=== PATIENT | male | born 1940 | race Caucasian/White ===

== ENCOUNTER 2017-12-05 11:39 | Emergency (ER) | payer MEDICARE, BC ==
[~2017-12-05] VITALS: Ht 170.2 cm; Wt 81.6 kg
[~2017-12-05 11:39] MED LIST: ALPR1TAB2 PO; ASPI-39 PO; CA C1TAB38 PO; CARV3.122 PO; CEPH500T PO; CLOP75TA57 PO; FAMO20TA5 PO; IBUP600T16 PO; LORA10TA68 PO; LOSA25TA PO; MUPI15CR TP; NITR0.4T SL; SIMV10TA PO; WARF6TAB47 PO; WARF7.5T45 PO
[2017-12-05] MEDS ORDERED: ASPIRIN 81 MG TAB.CHEW PO ONE (12:00)
--- NOTE | 2017-12-05 12:05 | PHYS DOC ---
Past History Past Medical History: A-Fib, Anxiety, CAD, Hypertension, Kidney Stones Past Surgical History: Other Smoking: Non-smoker Alcohol Use: None Drug Use: None Adult General Chief Complaint Chief Complaint: Palpitations [facility] HPI 77-year-old male presents with palpitations. Patient has known atrial fibrillation for which he takes carvedilol. He goes in and out A. fib and is aware of it when it happens. Over the last 2 weeks, the patient has felt himself having more frequent episodes of A. fib at rest. He used to go to couple months without having an episode, so this is concerning him. He denies chest pain or shortness of breath or diaphoresis. He has had night sweats the last 2 nights but thinks this may be related to eating roasted peanuts which she 's had difficulty with in the past. On arrival to the ED he is not having palpitations. He denies chest pain or shortness of breath. He just wants to make sure things are okay. He has no other feelings of illness. He denies fever or chills. Cardiac follow-up scheduled already in the next week. Review of Systems Review of Systems Constitutional: Denies fever or chills [] Eyes: Denies change in visual acuity, redness, or eye pain [] HENT: Denies nasal congestion or sore throat [] Respiratory: Denies cough or shortness of breath [] Cardiovascular: No additional information not addressed in HPI [] GI: Denies abdominal pain, nausea, vomiting, bloody stools or diarrhea [] : Denies dysuria or hematuria [] Musculoskeletal: Denies back pain or joint pain [] Integument: Denies rash or skin lesions [] Neurologic: Denies headache, focal weakness or sensory changes [] Endocrine: Denies polyuria or polydipsia [] All other systems were reviewed and found to be within normal limits, except as documented in this note. Current Medications Current Medications Current Medications Medications (Trade) Dose Ordered Sig/Eliu Start Time Stop Time Status Last Admin Dose Admin Aspirin (Children'S Aspirin) 324 mg 1X ONCE 12/05/17 12:00 12/05/17 12:01 Allergies Allergies Allergies Coded Allergies Type Severity Reaction Last Updated Verified Penicillins Allergy Unknown 06/27/14 Yes Sulfa (Sulfonamide Antibiotics) Allergy Unknown 06/27/14 Yes codeine Allergy Unknown 06/27/14 Yes Physical Exam Physical Exam Constitutional: Well developed, well nourished, no acute distress, non-toxic appearance. [] HENT: Normocephalic, atraumatic, bilateral external ears normal, oropharynx moist, no oral exudates, nose normal. [] Eyes: PERRLA, EOMI, conjunctiva normal, no discharge. [] Neck: Normal range of motion, no tenderness, supple, no stridor. [] Cardiovascular:Heart rate regular rhythm, no murmur [] Lungs & Thorax: Bilateral breath sounds clear to auscultation [] Abdomen: Bowel sounds normal, soft, no tenderness, no masses, no pulsatile masses. [] Skin: Warm, dry, no erythema, no rash. [] Back: No tenderness, no CVA tenderness. [] Extremities: No tenderness, no cyanosis, no clubbing, ROM intact, no edema. [] Neurologic: Alert and oriented X 3, normal motor function, normal sensory function, no focal deficits noted. [] Psychologic: Affect normal, judgement normal, mood normal. [] EKG EKG Sinus bradycardia, rate 49, borderline left axis, no ST elevations or depressions, Q waves in 2, 3, and aVF.[] Radiology/Procedures Radiology/Procedures Exam: AP portable chest History: Palpitations. Comparison: August 12, 2016. Findings: The heart and mediastinal structures are within normal limits for size. Lungs are without infiltrate. No pleural effusion or pneumothorax is identified. Impression: 1. No acute cardiopulmonary process. Electronically signed by: Wisam Love MD (12/05/2017 12:27 PM) [place] [id number] DICTATED AND SIGNED BY: WIASM LOVE MD DATE: 12/05/17 1226 CC: ÁNGELA YANEZ DO; KAYLEIGH TORRES PA ~ [] Course & Med Decision Making Course & Med Decision Making Pertinent Labs and Imaging studies reviewed. (See chart for details) The patient's EKG is unremarkable, his labs are unremarkable, his troponin is negative, his chest x-ray is unremarkable. I believe the patient just having more frequent bouts of A. fib for he is just noticing it more lately. Advised that he inform his hired help of his visit today and his symptoms. He already has an appointment December 13. [] Dragon Disclaimer Dragon Disclaimer This electronic medical record was generated, in whole or in part, using a voice recognition dictation system. Departure Departure: Referrals: KAYLEIGH TORRES (PCP) ÁNGELA YANEZ DO December 05, 2017 12:05
[2017-12-05 12:23] LABS: BASO % 0 % (0-3); EOS # 0.1 x10^3/uL (0.0-0.7); EOS % 2 % (0-3); HEMATOCRIT 48.1 % (39.0-53.0); HEMOGLOBIN 16.6 g/dL (13.0-17.5); LYMPH % 18 % (24-48); MEAN CORPUSCULAR HEMOGLOBIN 33 pg (25-35); MEAN CORPUSCULAR HGB CONC 34 g/dL (31-37); MEAN CORPUSCULAR VOLUME 96 fL (79-100); MONO # 0.4 x10^3/uL (0.0-1.1); MONO % 7 % (0-9); NEUT % 73 % (31-73); PLATELET COUNT 145 x10^3/uL (140-400); RED BLOOD COUNT 5.01 x10^6/uL (4.30-5.70); RED CELL DISTRIBUTION WIDTH 14.4 % (11.5-14.5); WHITE BLOOD COUNT 5.4 x10^3/uL (4.0-11.0)
--- NOTE | 2017-12-05 12:30 | RAD ---
Exam: AP portable chest History: Palpitations. Comparison: August 12, 2016. Findings: The heart and mediastinal structures are within normal limits for size. Lungs are without infiltrate. No pleural effusion or pneumothorax is identified. Impression: 1. No acute cardiopulmonary process. Electronically signed by: Wsiam Love MD (12/05/2017 12:27 PM) [place] [id number]
[2017-12-05 12:42] LABS: ALBUMIN 3.4 g/dL (3.4-5.0); ALBUMIN/GLOBULIN RATIO 1.3 (1.0-1.7); CALCIUM 8.5 mg/dL (8.5-10.1); CREATININE 0.9 mg/dL (0.7-1.3); GFR 81.6; POTASSIUM 3.7 mmol/L (3.5-5.1); TOTAL BILIRUBIN 1.3 mg/dL (0.2-1.0); TOTAL PROTEIN 6.1 g/dL (6.4-8.2)
[2017-12-05 13:11] VITALS: BP 160/63
--- NOTE | 2017-12-05 14:48 | EKG ---
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
== END 2017-12-05 13:12 | disposition home or self-care (01) ==
LOC: ER 11:39
DX: I48.91 Unspecified atrial fibrillation (principal); F41.9 Anxiety disorder, unspecified; I10 Essential (primary) hypertension; I25.10 Atherosclerotic heart disease of native coronary artery without angina pectoris; Z87.442 Personal history of urinary calculi; Z88.0 Allergy status to penicillin; Z88.2 Allergy status to sulfonamides; Z88.5 Allergy status to narcotic agent
CPT/HCPCS: 36415; 71045; 80053; 83880; 84484; 85025; 93005; 99285-25

== ENCOUNTER → 2017-12-12 | Outpatient (CLI) | payer MEDICARE, BC ==
[2017-12-05 13:11] VITALS: BP 160/63
--- NOTE | 2017-12-12 11:22 | CARD ---
MR#: [id number] Date of Study: 12/12/2017 Ordering Physician: WAI CASTILLO, Referring Physician: Marisol MICHAUD: MARY Gonzalez APPROVED REPORT EXAM: Two-dimensional and M-mode echocardiogram with Doppler and color Doppler. Other Information Quality : GoodHR: 74bpm INDICATION Cardiac Disease: CAD 2D DIMENSIONS Left Atrium(2D)4.3 (1.6-4.0cm)IVSd1.3 (0.7-1.1cm) Aortic Root(2D)2.6 (2.0-3.7cm)LVDd4.8 (3.9-5.9cm) LVOT Diameter2.0 (1.8-2.4cm)PWd1.3 (0.7-1.1cm) LVDs3.4 (2.5-4.0cm)FS (%) 28.4 % SV57.5 mlLVEF(%)54.7 (>50%) Aortic Valve AoV Peak [place].167.5cm/sAoV VTI43.2cm AO Peak GR.11.2mmHgLVOT Peak [place].109.0cm/s LVOT VTI 26.73cmAO Mean GR.6mmHg AVIVA (VMAX)1.90rt2BHA (VTI)1.88cm2 AI P 1/2 Tazk090xb Mitral Valve MV E Vozyeldg92.2cm/sMV E Peak Gr.84mmHg MV DECEL [id number] A Quvkszee84.0cm/s E/A Ratio1.3 Pulmonary Valve PV Peak Bhntlyso127.7cm/sPV Peak Grad.6mmHg Tricuspid Valve TR P. Ywetuypj701vs/sTR Peak Gr.28mmHg Pulmonary Vein S1 Kfdxbvjt64.3cm/sD2 Cuimhyif28.3cm/s LEFT VENTRICLE The left ventricle is normal size. There is mild concentric left ventricular hypertrophy. The left ve ntricular systolic function is normal and the ejection fraction is within normal range. EF 55% There is normal LV segmental wall motion. Transmitral Doppler flow pattern is Grade II-pseudonormal filling dynamics. RIGHT VENTRICLE The right ventricle is normal size. There is normal right ventricular wall thickness. The right ventr icular systolic function is normal. ATRIA The left atrium is mildly dilated. The right atrium is mildly dilated. The interatrial septum is inta ct with no evidence for an atrial septal defect or patent foramen ovale as noted on 2-D or Doppler im aging. AORTIC VALVE The aortic valve is mildly calcified. Doppler and Color Flow revealed moderate aortic regurgitation. There is no significant aortic valvular stenosis. There is no aortic valvular vegetation. MITRAL VALVE The mitral valve is mildly thickened. There is no evidence of mitral valve prolapse. There is no mitr al valve stenosis. Doppler and Color-flow revealed moderate mitral regurgitation. TRICUSPID VALVE The tricuspid valve leaflets are thickened , but open well. Doppler and Color Flow revealed mild tric uspid regurgitation. There is no tricuspid valve prolapse or vegetation. There is no tricuspid valve stenosis. PULMONIC VALVE Doppler and Color Flow revealed no pulmonic valvular regurgitation. There is no pulmonic valvular sawyer nosis. GREAT VESSELS The aortic root is normal size. The aortic root displays mild sclerocalcific changes of the aortic an nulus. The IVC was not visualized. PERICARDIAL EFFUSION There is no pleural effusion. There is no evidence of significant pericardial effusion. Critical Notification Critical Value: No <Conclusion> The left ventricular systolic function is normal and the ejection fraction is within normal range. EF 55% There is normal LV segmental wall motion. Doppler and Color Flow revealed moderate aortic regurgitation. Doppler and Color-flow revealed moderate mitral regurgitation. Signed by : Monty Fernandez, Electronically Approved : 12/12/2017 11:21:02
== END | disposition home or self-care (01) ==
LOC: ECHO 07:39
PROVIDERS: ATTEND Internal Medicine Cardiovascular Disease
DX: I25.10 Atherosclerotic heart disease of native coronary artery without angina pectoris (principal); I08.3 Combined rheumatic disorders of mitral, aortic and tricuspid valves
CPT/HCPCS: 93306

== ENCOUNTER 2018-05-24 08:51 | Emergency (ER) | payer MEDICARE, BC ==
[~2018-05-24] VITALS: Ht 170.2 cm; Wt 87.5 kg
--- NOTE | 2018-05-24 09:19 | EKG ---
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
[2018-05-24 09:55] LABS: BASO % 0 % (0-3); EOS # 0.1 x10^3/uL (0.0-0.7); EOS % 2 % (0-3); HEMATOCRIT 49.2 % (39.0-53.0); HEMOGLOBIN 16.5 g/dL (13.0-17.5); LYMPH # 0.8 x10^3/uL (1.0-4.8); LYMPH % 14 % (24-48); MEAN CORPUSCULAR HEMOGLOBIN 32 pg (25-35); MEAN CORPUSCULAR HGB CONC 34 g/dL (31-37); MEAN CORPUSCULAR VOLUME 96 fL (79-100); MONO # 0.4 x10^3/uL (0.0-1.1); MONO % 6 % (0-9); NEUT # 4.7 x10^3uL (1.8-7.7); NEUT % 79 % (31-73); PLATELET COUNT 175 x10^3/uL (140-400); RED BLOOD COUNT 5.13 x10^6/uL (4.30-5.70); RED CELL DISTRIBUTION WIDTH 13.7 % (11.5-14.5); WHITE BLOOD COUNT 5.9 x10^3/uL (4.0-11.0)
--- NOTE | 2018-05-24 10:06 | RAD ---
PROCEDURE: CHEST PA LATERAL CLINICAL INDICATION: WEAKNESS, SHORT OF BREATH COMPARISON: 12/05/2017 FINDINGS: No pneumothorax identified. Cardiac and mediastinal contours unremarkable. No pulmonary consolidation or acute airspace disease. No acute osseous abnormalities identified. IMPRESSION: No pulmonary consolidation or acute airspace disease. Electronically signed by: Nikunj Farley DO (05/24/2018 10:02 AM) [id number]
[2018-05-24 10:18] LABS: ALBUMIN 3.4 g/dL (3.4-5.0); ALBUMIN/GLOBULIN RATIO 1.2 (1.0-1.7); CALCIUM 8.7 mg/dL (8.5-10.1); GFR 72.1; MAGNESIUM 2.1 mg/dL (1.8-2.4); TOTAL BILIRUBIN 1.1 mg/dL (0.2-1.0); TOTAL PROTEIN 6.3 g/dL (6.4-8.2)
[2018-05-24 10:49] LABS: BACTERIA,URINE 0 /HPF (0-FEW); BILIRUBIN,URINE NEG (NEG); CLARITY,URINE HAZY; COLOR,URINE AMBER; GLUCOSE,URINE NEG (NEG); NITRITE,URINE NEG (NEG); RBC,URINE 0 /HPF (0-2); SQUAMOUS EPITHELIAL CELL,UR OCC /LPF; UROBILINOGEN,URINE 0.2 mg/dL (0.2 mg/dL); WBC,URINE 0 /HPF (0-4)
[2018-05-24] MEDS ORDERED: ALPR0.25 PO (11:16)
--- NOTE | 2018-05-24 11:16 | PHYS DOC ---
Past History Past Medical History: A-Fib, Anxiety, Heart Disease, Pneumonia Past Surgical History: Cancer Surgery, Cholecystectomy, Other Smoking: Non-smoker Alcohol Use: None Drug Use: None Adult General Chief Complaint Chief Complaint: SHORTNESS OF BREATH HPI HPI Patient is a 78 year old male who presents with complaining of generalized weakness for several weeks and right forearm pain today. Patient states he had decrease of energy and activity for the last several weeks without vomiting, diarrhea, urinary symptoms, fever and chills, chest pain, neuro deficit. Patient complaining of mild episodes of shortness of breath with exertion and supine position. Patient complaining of mild right distal arm pain and was concern for possible heart attack because with his previous heart attack 7 years ago he did not have chest pain. Patient denies losing weight, anorexia, insomnia. Patient had cardiology visit and unremarkable colonoscopy a few months ago. Review of Systems Review of Systems Constitutional: Denies fever or chills [] Eyes: Denies change in visual acuity, redness, or eye pain [] HENT: Denies nasal congestion or sore throat [] Respiratory: Denies cough or shortness of breath [] Cardiovascular: No additional information not addressed in HPI [] GI: Denies abdominal pain, nausea, vomiting, bloody stools or diarrhea [] : Denies dysuria or hematuria [] Musculoskeletal: Denies back pain or joint pain [] Integument: Denies rash or skin lesions [] Neurologic: Denies headache, focal weakness or sensory changes [] Endocrine: Denies polyuria or polydipsia [] All other systems were reviewed and found to be within normal limits, except as documented in this note. Allergies Allergies Allergies Coded Allergies Type Severity Reaction Last Updated Verified Penicillins Allergy Unknown 06/27/14 Yes Sulfa (Sulfonamide Antibiotics) Allergy Unknown 06/27/14 Yes codeine Allergy Unknown 06/27/14 Yes Physical Exam Physical Exam Constitutional: Well developed, well nourished, no acute distress, non-toxic appearance. [] HENT: Normocephalic, atraumatic, oropharynx moist, no oral exudates, nose normal. [] Eyes: PERRLA, EOMI, conjunctiva normal, no discharge. [] Neck: Normal range of motion, no tenderness, supple, no stridor. [] Cardiovascular:Heart rate regular rhythm, no murmur [] Lungs & Thorax: Bilateral breath sounds clear to auscultation [] Abdomen: Bowel sounds normal, soft, no tenderness, no masses, no pulsatile masses. [] Skin: Warm, dry, no erythema, no rash. [] Back: No tenderness, no CVA tenderness. [] Extremities: No tenderness, no cyanosis, no clubbing, ROM intact, no edema. [] Neurologic: Alert and oriented X 3, normal motor function, normal sensory function, no focal deficits noted. [] Psychologic: Affect normal, judgement normal, mood normal. [] Current Patient Data Vital Signs Vital Signs Date Time Temp Pulse Resp B/P (MAP) Pulse Ox O2 Delivery O2 Flow Rate FiO2 05/24/18 10:25 97.4 56 24 164/71 (102) 97 Room Air Lab Results Laboratory Tests Test 05/24/18 09:33 05/24/18 10:23 White Blood Count 5.9 x10^3/uL (4.0-11.0) Red Blood Count 5.13 x10^6/uL (4.30-5.70) Hemoglobin 16.5 g/dL (13.0-17.5) Hematocrit 49.2 % (39.0-53.0) Mean Corpuscular Volume 96 fL (79-100) Mean Corpuscular Hemoglobin 32 pg (25-35) Mean Corpuscular Hemoglobin Concent 34 g/dL (31-37) Red Cell Distribution Width 13.7 % (11.5-14.5) Platelet Count 175 x10^3/uL (140-400) Neutrophils (%) (Auto) 79 % (31-73) H Lymphocytes (%) (Auto) 14 % (24-48) L Monocytes (%) (Auto) 6 % (0-9) Eosinophils (%) (Auto) 2 % (0-3) Basophils (%) (Auto) 0 % (0-3) Neutrophils # (Auto) 4.7 x10^3uL (1.8-7.7) Lymphocytes # (Auto) 0.8 x10^3/uL (1.0-4.8) L Monocytes # (Auto) 0.4 x10^3/uL (0.0-1.1) Eosinophils # (Auto) 0.1 x10^3/uL (0.0-0.7) Basophils # (Auto) 0.0 x10^3/uL (0.0-0.2) Prothrombin Time 18.3 SEC (9.4-11.4) H Prothrombin Time INR 1.9 (0.9-1.1) H PTT 30 SEC (23-33) D-Dimer (Maye) < 0.19 mg/L (0.00-0.50) Sodium Level 139 mmol/L (136-145) Potassium Level 4.0 mmol/L (3.5-5.1) Chloride Level 104 mmol/L (98-107) Carbon Dioxide Level 26 mmol/L (21-32) Anion Gap 9 (6-14) Blood Urea Nitrogen 14 mg/dL (8-26) Creatinine 1.0 mg/dL (0.7-1.3) Estimated GFR (Cockcroft-Gault) 72.1 BUN/Creatinine Ratio 14 (6-20) Glucose Level 132 mg/dL (70-99) H Lactic Acid Level 1.0 mmol/L (0.4-2.0) Calcium Level 8.7 mg/dL (8.5-10.1) Magnesium Level 2.1 mg/dL (1.8-2.4) Total Bilirubin 1.1 mg/dL (0.2-1.0) H Aspartate Amino Transferase (AST) 17 U/L (15-37) Alanine Aminotransferase (ALT) 28 U/L (16-63) Alkaline Phosphatase 61 U/L (46-116) Creatine Kinase 71 U/L (39-308) Troponin I Quantitative < 0.017 ng/mL (0-0.055) ZP-Lqf-P-Type Natriuretic Peptide 230 pg/mL (0-449) Total Protein 6.3 g/dL (6.4-8.2) L Albumin 3.4 g/dL (3.4-5.0) Albumin/Globulin Ratio 1.2 (1.0-1.7) Lipase 143 U/L (73-393) Urine Collection Type Unknown Urine Color Karen Urine Clarity Hazy Urine pH 5.5 Urine Specific [place] 1.025 Urine Protein Neg (NEG-TRACE) Urine Glucose (UA) Neg mg/dL (NEG) Urine Ketones (Stick) Neg mg/dL (NEG) Urine Blood Neg (NEG) Urine Nitrite Neg (NEG) Urine Bilirubin Neg (NEG) Urine Urobilinogen Dipstick 0.2 mg/dL (0.2 mg/dL) Urine Leukocyte Esterase Neg (NEG) Urine RBC 0 /HPF (0-2) Urine WBC 0 /HPF (0-4) Urine Squamous Epithelial Cells Occ /LPF Urine Bacteria 0 /HPF (0-FEW) Urine Mucus Mod /LPF EKG EKG EKG interpreted me. EKG at 0 911 showed sinus bradycardia at rate of 55, left axis deviation, Q waves in inferior leads, no acute ST and T-wave abnormalities. Radiology/Procedures Radiology/Procedures [address] [address] IMAGING REPORT Signed PATIENT: MAGGY CABALLERO ACCOUNT: [id number] : 1940 LOCATION: ER AGE: 78 SEX: M EXAM STATUS: REG ER ORD. PHYSICIAN: MANDEEP PEÑALOZA MD REASON: generalized weakness PROCEDURE: CHEST PA & LATERAL PROCEDURE: CHEST PA LATERAL CLINICAL INDICATION: WEAKNESS, SHORT OF BREATH COMPARISON: 12/05/2017 FINDINGS: No pneumothorax identified. Cardiac and mediastinal contours unremarkable. No pulmonary consolidation or acute airspace disease. No acute osseous abnormalities identified. IMPRESSION: No pulmonary consolidation or acute airspace disease. Electronically signed by: Nikunj Farley DO (05/24/2018 10:02 AM) [id number] DICTATED AND SIGNED BY: NIKUNJ FARLEY DO DATE: 05/24/18 1001 CC: MANDEEP PEÑALOZA MD; KAYLEIGH TORRES ~ Course & Med Decision Making Course & Med Decision Making Pertinent Labs and Imaging studies reviewed. (See chart for details) Evaluation of patient in ER showed 78-year-old male patient with history of anxiety with complaining of generalized weakness for several weeks. Patient had unremarkable physical exam and cardiac enzyme, d-dimer, electrolytes and labs. Prescription for Xanax 0.25 for using PRN was given and patient instructed to follow up with his primary care physician. Dragon Disclaimer Dragon Disclaimer This electronic medical record was generated, in whole or in part, using a voice recognition dictation system. Departure Departure: Condition: STABLE Referrals: KAYLEIGH TORRES (PCP) Patient Instructions: Anxiety and Panic Attacks, Weakness Additional Instructions: Continue your current medication Follow-up with your primary care physician in 3-5 days Return to ER if not getting better Scripts Alprazolam (XANAX) 0.25 Mg Tablet 0.25 MG PO PRN Q6HRS PRN for ANXIETY / AGITATION, #14 TAB 0 Refills Prov: MANDEEP PEÑALOZA MD 05/24/18 MANDEEP PEÑALOZA MD May 24, 2018 11:16
[2018-05-24 11:25] VITALS: BP 164/83
== END 2018-05-24 11:33 | disposition home or self-care (01) ==
LOC: ER 08:51
DX: R53.1 Weakness (principal); R06.02 Shortness of breath; M79.601 Pain in right arm; I48.91 Unspecified atrial fibrillation; F41.9 Anxiety disorder, unspecified; Z88.0 Allergy status to penicillin; Z88.2 Allergy status to sulfonamides; Z88.5 Allergy status to narcotic agent
CPT/HCPCS: 36415; 71046; 80053; 81001; 82550; 83605; 83690; 83735; 83880; 84484; 85025; 85379; 85610; 85730; 87040; 93005; 99285-25

== ENCOUNTER 2018-10-22 19:40 | Inpatient (IN) | payer MEDICARE, BC ==
[~2018-10-22] VITALS: Ht 170.2 cm; Wt 90.4 kg
[~2018-10-22 19:40] MED LIST changes: +ALPR0.25 PO; -CARV3.122 PO; +CARV3.1230 PO
[2018-10-22] MEDS ORDERED: ASPIRIN 81 MG TAB.CHEW PO ONE (19:45)
[2018-10-22] MEDS ORDERED: IV NORMAL SALINE 1,000ML 1,000 ML IV SCH (19:45)
--- NOTE | 2018-10-22 19:45 | ED.ADGEN ---
Past History Past Medical History: A-Fib, Anxiety, CAD, Heart Disease, OK, Pneumonia Past Surgical History: Cancer Surgery, Cholecystectomy, Other Smoking: Non-smoker Alcohol Use: None Drug Use: None Adult General Chief Complaint Chief Complaint ".. I ve been having off and on tightness or chest discomfort all day...but it more constant so I came in.. it vivienne like when I had OK ...Thanks2010.. I usually see the cardiology doctors at [place].. My primary is Ernestina [facility] HPI Patient is a 78 year old male who presents with above hx and complaints of chest pain throughout the day. Patient states pain and tightness is in center chest and radiates into left arm. Patient has had previous OK and stents. Last OK was in 2010 in May. Patient does have a history of hypertension diabetes elevated cholesterol. Patient normally follows with [place] cardiology. Patient is on Coumadin. Review of Systems Review of Systems Constitutional: Denies fever or chills [] Eyes: Denies change in visual acuity, redness, or eye pain [] HENT: Denies nasal congestion or sore throat [] Respiratory: Denies cough or shortness of breath [] Cardiovascular: No additional information not addressed in [facility] [] GI: Denies abdominal pain, nausea, vomiting, bloody stools or diarrhea [] : Denies dysuria or hematuria [] Musculoskeletal: Denies back pain or joint pain [] Integument: Denies rash or skin lesions [] Neurologic: Denies headache, focal weakness or sensory changes [] Endocrine: Denies polyuria or polydipsia [] All other systems were reviewed and found to be within normal limits, except as documented in this note. Family History Family History Noncontributory Current Medications Current Medications Current Medications Medications (Trade) Dose Ordered Sig/Eliu Start Time Stop Time Status Last Admin Dose Admin Aspirin (Children'S Aspirin) 324 mg 1X ONCE 10/22/18 19:45 10/22/18 19:46 DC Nitroglycerin (Nitro-Bid Oint) 1 inch 1X ONCE 10/22/18 20:00 10/22/18 20:01 Sodium Chloride 1,000 ml @ 100 mls/hr Q10H 10/22/18 19:45 10/23/18 05:44 Allergies Allergies Allergies Coded Allergies Type Severity Reaction Last Updated Verified Penicillins Allergy Unknown 06/27/14 Yes Sulfa (Sulfonamide Antibiotics) Allergy Unknown 06/27/14 Yes codeine Allergy Unknown 06/27/14 Yes Physical Exam Physical Exam Constitutional: Mild distress, non-toxic appearance. [] HENT: Normocephalic, atraumatic, bilateral external ears normal, oropharynx moist, no oral exudates, nose normal. [] Eyes: PERRLA, EOMI, conjunctiva normal, no discharge. [] Neck: Normal range of motion, no tenderness, supple, no stridor. [] Cardiovascular:Heart rate regular rhythm, no murmur []PMI to the left. Occasional PVCs per monitor Lungs & Thorax: Bilateral breath sounds clear to auscultation [] Abdomen: Bowel sounds normal, soft, no tenderness, no masses, no pulsatile masses. [] Obese. Declines rectal at this time. Skin: Warm, dry, no erythema, no rash. [] Back: No tenderness, no CVA tenderness. [] Extremities: No tenderness, no cyanosis, no clubbing, ROM intact, no edema. [] Neurologic: Alert and oriented X 3, normal motor function, normal sensory function, no focal deficits noted. [] Psychologic: Affect anxious, judgement normal, mood normal. [] EKG EKG My interpretation EKG shows a sinus rhythm at 63 bpm. Left axis deviation. Some nonspecific contour changes. No findings acute STEMI of contralateral changes.[] Radiology/Procedures Radiology/Procedures My interpretation chest x-ray shows no acute interval changes. Borderline cardiomegaly.[] Course & Med Decision Making Course & Med Decision Making Pertinent Labs and Imaging studies reviewed. (See chart for details) Patient admitted to Dr. Pérez with cardiology consult [] Final Impression Final Impression 1. Chest Pain[] 2. Hx. CADz 3. HTN 4. DM - 123 See down time forms for further detail. Dragon Disclaimer Dragon Disclaimer This electronic medical record was generated, in whole or in part, using a voice recognition dictation system. Discharge Summary Visit Information Final Diagnosis Problems Medical Problems: (1) Chest pain Status: Acute Brief Hospital Course Allergies Allergies Coded Allergies Type Severity Reaction Last Updated Verified Penicillins Allergy Unknown 06/27/14 Yes Sulfa (Sulfonamide Antibiotics) Allergy Unknown 06/27/14 Yes codeine Allergy Unknown 06/27/14 Yes Vital Signs Vital Signs Date Time Temp Pulse Resp B/P (MAP) Pulse Ox O2 Delivery O2 Flow Rate FiO2 10/22/18 20:43 61 16 164/71 (102) 94 Room Air 10/22/18 19:40 97.8 Lab Results Laboratory Tests Test 10/22/18 19:44 10/22/18 20:05 White Blood Count 5.2 x10^3/uL (4.0-11.0) Red Blood Count 5.37 x10^6/uL (4.30-5.70) Hemoglobin 17.6 g/dL (13.0-17.5) Hematocrit 51.0 % (39.0-53.0) Mean Corpuscular Volume 95 fL (79-100) Mean Corpuscular Hemoglobin 33 pg (25-35) Mean Corpuscular Hemoglobin Concent 35 g/dL (31-37) Red Cell Distribution Width 14.2 % (11.5-14.5) Platelet Count 162 x10^3/uL (140-400) Neutrophils (%) (Auto) 62 % (31-73) Lymphocytes (%) (Auto) 27 % (24-48) Monocytes (%) (Auto) 9 % (0-9) Eosinophils (%) (Auto) 2 % (0-3) Basophils (%) (Auto) 1 % (0-3) Neutrophils # (Auto) 3.2 x10^3uL (1.8-7.7) Lymphocytes # (Auto) 1.4 x10^3/uL (1.0-4.8) Monocytes # (Auto) 0.5 x10^3/uL (0.0-1.1) Eosinophils # (Auto) 0.1 x10^3/uL (0.0-0.7) Basophils # (Auto) 0.0 x10^3/uL (0.0-0.2) Prothrombin Time 23.3 SEC (9.4-11.4) Prothromb Time International Ratio 2.4 (0.9-1.1) Activated Partial Thromboplast Time 35 SEC (23-33) D-Dimer (Maye) < 0.19 mg/L (0.00-0.50) Sodium Level 140 mmol/L (136-145) Potassium Level 3.7 mmol/L (3.5-5.1) Chloride Level 106 mmol/L (98-107) Carbon Dioxide Level 26 mmol/L (21-32) Anion Gap 8 (6-14) Blood Urea Nitrogen 19 mg/dL (8-26) Creatinine 0.9 mg/dL (0.7-1.3) Estimated GFR (Cockcroft-Gault) 81.4 Glucose Level 123 mg/dL (70-99) Calcium Level 8.8 mg/dL (8.5-10.1) Magnesium Level 2.1 mg/dL (1.8-2.4) Total Bilirubin 0.8 mg/dL (0.2-1.0) Direct Bilirubin 0.2 mg/dL (0.0-0.2) Aspartate Amino Transf (AST/SGOT) 25 U/L (15-37) Alanine Aminotransferase (ALT/SGPT) 34 U/L (16-63) Alkaline Phosphatase 72 U/L (46-116) Creatine Kinase 89 U/L (39-308) Troponin I Quantitative < 0.017 ng/mL (0-0.055) ES-Kyg-C-Type Natriuretic Peptide 255 pg/mL (0-449) Total Protein 6.6 g/dL (6.4-8.2) Albumin 3.7 g/dL (3.4-5.0) Lipase 153 U/L (73-393) Urine Collection Type Unknown Urine Color Yellow Urine Clarity Clear Urine pH 6.5 Urine Specific [place] 1.015 Urine Protein Neg (NEG-TRACE) Urine Glucose (UA) 100 mg/dL (NEG) Urine Ketones (Stick) Neg mg/dL (NEG) Urine Blood Neg (NEG) Urine Nitrite Neg (NEG) Urine Bilirubin Neg (NEG) Urine Urobilinogen Dipstick 0.2 mg/dL (0.2 mg/dL) Urine Leukocyte Esterase Neg (NEG) Urine RBC 0 /HPF (0-2) Urine WBC 0 /HPF (0-4) Urine Squamous Epithelial Cells Occ /LPF Urine Bacteria 0 /HPF (0-FEW) Urine Opiates Screen Neg (NEG) Urine Methadone Screen Neg (NEG) Urine Barbiturates Neg (NEG) Urine Phencyclidine Screen Neg (NEG) Urine Amphetamine/Methamphetamine Neg (NEG) Urine Benzodiazepines Screen Neg (NEG) Urine Cocaine Screen Neg (NEG) Urine Cannabinoids Screen Neg (NEG) Urine Ethyl Alcohol Neg (NEG) Brief Hospital Course Mr. Palencia is a 78 old male who presented with hx chest pain. Admitted Dr. Pérez with cardiology consult. Discharge Information Condition at Discharge: Improved Dischare Medications Current Medications Aspirin (Children'S Aspirin) 324 mg 1X ONCE PO Last administered on 10/22/18at 20:05; Start 10/22/18 at 19:45; Stop 10/22/18 at 19:46; Status DC Sodium Chloride 1,000 ml @ 100 mls/hr Q10H IV Last administered on 10/22/18at 20:09; Start 10/22/18 at 19:45; Stop 10/23/18 at 05:44 Nitroglycerin (Nitro-Bid Oint) 1 inch 1X ONCE TP Last administered on at 20:07; Start 10/22/18 at 20:00; Stop 10/22/18 at 20:01; Status DC Ondansetron HCl (Zofran) 4 mg PRN Q4HRS PRN IV NAUSEA/VOMITING; Start 10/22/18 at 21:30; Stop 10/23/18 at 21:29 Albuterol/ Ipratropium (Duoneb) 3 ml RTQID NEB ; Start 10/23/18 at 08:00; Stop 10/24/18 at 07:59 Lorazepam (Ativan) 2 mg STK-MED ONCE .ROUTE ; Start 10/22/18 at 21:59; Stop at 00:52; Status DC Active Scripts Active Xanax (Alprazolam) 0.25 Mg Tablet 0.25 Mg PO PRN Q6HRS PRN Bactroban (Mupirocin Calcium) 15 Gm Cream..g. 1 Juve TP BID Cephalexin 500 Mg Tablet 1 Tab PO TID Xanax (Alprazolam) 1 Mg Tablet 1 Tab PO DAILY Reported Ibuprofen 600 Mg Tablet 600 Mg PO Nitrostat (Nitroglycerin) 0.4 Mg Tab.subl 0.4 Mg SL Claritin (Loratadine) 10 Mg Tablet 10 Mg PO Warfarin Sodium 7.5 Mg Tablet 7.5 Mg PO QMWF Warfarin Sodium 6 Mg Tablet 7 Mg PO QTUTHSASU Zocor (Simvastatin) 10 Mg Tablet 10 Mg PO Carvedilol 3.125 Mg Tablet 3.125 Mg PO Xanax (Alprazolam) 1 Mg Tablet 1 Mg PO Famotidine 20 Mg Tablet 20 Mg PO Cozaar (Losartan Potassium) 25 Mg Tablet 25 Mg PO Plavix (Clopidogrel Bisulfate) 75 Mg Tablet 75 Mg PO Calcium + D Soft Chewable Tab (Ca Carbonate/Vitamin D3/Vit K) 1 Each Tab.chew 1 Each PO Eulalia Chewable (Aspirin) 81 Mg Tab.chew 81 Mg PO Dragon Disclaimer This chart was dictated in whole or in part using Voice Recognition software in a busy, high-work load, and often noisy Emergency Department environment. It may contain unintended and wholly unrecognized errors or omissions. NOBLE BUSTOS MD Oct 22, 2018 19:45
[2018-10-22] MEDS ORDERED: NITROGLYCERIN OINT 1 GM PACKET. TP ONE (20:00)
[2018-10-22 20:02] LABS: BASO % 1 % (0-3); EOS # 0.1 x10^3/uL (0.0-0.7); EOS % 2 % (0-3); HEMOGLOBIN 17.6 g/dL (13.0-17.5); LYMPH # 1.4 x10^3/uL (1.0-4.8); LYMPH % 27 % (24-48); MEAN CORPUSCULAR HEMOGLOBIN 33 pg (25-35); MEAN CORPUSCULAR HGB CONC 35 g/dL (31-37); MEAN CORPUSCULAR VOLUME 95 fL (79-100); MONO # 0.5 x10^3/uL (0.0-1.1); MONO % 9 % (0-9); NEUT # 3.2 x10^3uL (1.8-7.7); NEUT % 62 % (31-73); PLATELET COUNT 162 x10^3/uL (140-400); RED BLOOD COUNT 5.37 x10^6/uL (4.30-5.70); RED CELL DISTRIBUTION WIDTH 14.2 % (11.5-14.5); WHITE BLOOD COUNT 5.2 x10^3/uL (4.0-11.0)
[2018-10-22 20:23] LABS: ALBUMIN 3.7 g/dL (3.4-5.0); CALCIUM 8.8 mg/dL (8.5-10.1); CREATININE 0.9 mg/dL (0.7-1.3); DIRECT BILIRUBIN 0.2 mg/dL (0.0-0.2); GFR 81.4; MAGNESIUM 2.1 mg/dL (1.8-2.4); POTASSIUM 3.7 mmol/L (3.5-5.1); TOTAL BILIRUBIN 0.8 mg/dL (0.2-1.0); TOTAL PROTEIN 6.6 g/dL (6.4-8.2)
[2018-10-22 20:24] LABS: BACTERIA,URINE 0 /HPF (0-FEW); BILIRUBIN,URINE NEG (NEG); CLARITY,URINE CLEAR; COLOR,URINE YELLOW; GLUCOSE,URINE 100 mg/dL (NEG); NITRITE,URINE NEG (NEG); RBC,URINE 0 /HPF (0-2); SQUAMOUS EPITHELIAL CELL,UR OCC /LPF; UROBILINOGEN,URINE 0.2 mg/dL (0.2 mg/dL); WBC,URINE 0 /HPF (0-4)
[2018-10-22 20:25] LABS: AMPHETAMINE/METHAMPHETAMINE NEG (NEG); BARBITURATES NEG (NEG); BENZODIAZEPINES NEG (NEG); CANNABINOIDS NEG (NEG); COCAINE NEG (NEG); METHADONE NEG (NEG); OPIATES NEG (NEG); PHENCYCLIDINE NEG (NEG)
[2018-10-22] MEDS ORDERED: ONDANSETRON PF 4 MG/2 ML VIAL. IV PRN (21:30)
[2018-10-22 23:30] VITALS: BP 157/65
[2018-10-23] MEDS ORDERED: VITA1TAB19 PO (02:05)
--- NOTE | 2018-10-23 02:39 | EKG ---
[address] [address] Test Date: 2018-10-22 Test Time: 19:51:04 Pat Name: MAGYG CABALLERO Department: Room: 120 A Gender: M Cra: : 1940 Requested By: NOBLE BUSTOS Order Number: [id number] Reading MD: Erich Edgar Measurements Intervals [place] Rate: 63 P: 32 AL: 190 QRS: -38 QRSD: 106 T: 28 QT: 418 QTc: 431 Interpretive Statements SINUS RHYTHM ABNORMAL LEFT AXIS DEVIATION QRS(T) CONTOUR ABNORMALITY CONSISTENT WITH INFERIOR INFARCT PROBABLY OLD ABNORMAL ECG Electronically Signed On 10-29-2018 13:02:27 CDT by Erich Edgar
--- NOTE | 2018-10-23 03:18 | NUR ---
The patient, MAGGY CABALLERO, 78 y/o, M admitted by GOMEZ LAGUNA MD, was given written information regarding hospital policies, unit procedures and contact persons. Valuables were checked and noted. PT admitted and transported via EMS. PT transferred to bed safely. PT oriented to unit. Medications reviewed with the PT as well as FH, SH, PMH, PSH and allergies.
[2018-10-23 06:08] VITALS: BP 155/69
[2018-10-23] MEDS ORDERED: NITROGLYCERIN SUBLINGUAL 0.4 MG BOTTLE OF 25. SL SCH (07:00)
[2018-10-23] MEDS ORDERED: CARVEDILOL 3.125 MG TABLET PO SCH (08:00)
[2018-10-23] MEDS ORDERED: IPRATRPIUM/ALBUTEROL 0.5/2.5MG 3 ML NEBU. NEB SCH (08:00)
--- NOTE | 2018-10-23 08:11 | RAD ---
PORTABLE CHEST 1V History: Chest pain Comparison: May 24, 2018 Findings: Single view of the chest is submitted. There is no lobar infiltrate, pleural fluid, pneumothorax. 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 Heart size is similar allowing for differences in technique. Impression: 1. There is no radiographic evidence of acute cardiopulmonary disease. Electronically signed by: Wes Rodriguez MD (10/23/2018 8:08 AM) [id number]
[2018-10-23] MEDS ORDERED: VITAMIN B COMPLEX CAPSULE. PO SCH (09:00)
[2018-10-23] MEDS ORDERED: FAMOTIDINE 20 MG TABLET PO SCH (09:00)
[2018-10-23] MEDS ORDERED: LOSARTAN 50 MG TABLET. PO SCH (09:00)
[2018-10-23] MEDS ORDERED: CLOPIDOGREL BISULFATE 75 MG TABLET PO SCH (09:00)
--- NOTE | 2018-10-23 09:17 | PDOC2 ---
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 He presents with complaints of aching down the insides of both arms and mild chest pressure consistent with his prior angina. He reports a significant decrease in functional capacity over the last 12 months and discomfort off and on over the last week. He says discomfort occurs after exertion but not as bad during exertion. He denies congestive symptoms, lightheadedness or syncope. He reports anxiety and increased stress that he thinks is contributing to his stress. Past Medical History Echo 12/12/17 The left ventricular systolic function is normal and the ejection fraction is within normal range. EF 55% There is normal LV segmental wall motion. Doppler and Color Flow revealed moderate aortic regurgitation. Doppler and Color-flow revealed moderate mitral regurgitation. Lexiscan MPI 12/25/17 inferior lateral infarct with thania infarct ischemia, EF 60% Cardiac cath 2013 heavy calcific disease, small vessel disease LM no critical stenosis LAD - moderate heavy calcification, distal small, 80%, not amenable to PCI LCX - Ostial LCX stent patent, OM1 70%, mid LCX 50%, distal LCX small vessel RCA - subtotal occlusion mid, small vessel, BEL II - II flow medical mgmt 2010 - Ostial LCX stenting. CAD s/p PCI/stent PAF - Zio patch 12/2017 without significant arrhythmias. Short salvos of PAF up to 24 seconds. hyperlipidemia, pneumonia, GERD, hypertension, bradycardia, vertigo, varicose veins Past Surgical History: Cholecystectomy, Hernia Repair, Other (pyloric stenosis dilitation, basal cell carcinoma removal, prostatectomy) Family History: Cancer Social History non smoker, no illicit drugs or significant ETOH Current Medications Current Medications Aspirin (Children'S Aspirin) 324 mg 1X ONCE PO Last administered on 10/22/18at 20:05; Start 10/22/18 at 19:45; Stop 10/22/18 at 19:46; Status DC Sodium Chloride 1,000 ml @ 100 mls/hr Q10H IV Last administered on 10/22/18at 20:09; Start 10/22/18 at 19:45; Stop 10/23/18 at 05:44; Status DC Nitroglycerin (Nitro-Bid Oint) 1 inch 1X ONCE TP Last administered on at 20:07; Start 10/22/18 at 20:00; Stop 10/22/18 at 20:01; Status DC Ondansetron HCl (Zofran) 4 mg PRN Q4HRS PRN IV NAUSEA/VOMITING; Start 10/22/18 at 21:30; Stop 10/23/18 at 21:29 Albuterol/ Ipratropium (Duoneb) 3 ml RTQID NEB ; Start 10/23/18 at 08:00; Stop 10/24/18 at 07:59 Lorazepam (Ativan) 2 mg STK-MED ONCE .ROUTE ; Start 10/22/18 at 21:59; Stop at 00:52; Status DC Lorazepam (Ativan) 2 mg 1X ONCE IV Last administered on 10/22/18at 21:59; Start 10/23/18 at 02:00; Stop 10/23/18 at 02:02; Status DC Carvedilol (Coreg) 3.125 mg BIDWMEALS PO Last administered on 10/23/18at 07:58; Start 10/23/18 at 08:00 Clopidogrel Bisulfate (Plavix) 75 mg DAILY PO Last administered on 10/23/18at 07 :58; Start 10/23/18 at 09:00 Losartan Potassium (Cozaar) 50 mg DAILY PO Last administered on 10/23/18at 07:58 ; Start 10/23/18 at 09:00 Nitroglycerin (Nitrostat) 0.4 mg PRN Q5MIN SL ; Start 10/23/18 at 07:00 Simvastatin (Zocor) 10 mg HS PO ; Start 10/23/18 at 21:00 Warfarin Sodium (Coumadin) 6 mg DAILY16 PO ; Start 10/23/18 at 16:00 Aspirin (Children'S Aspirin) 81 mg QMWF@0800 PO ; Start 10/24/18 at 08:00 Famotidine (Pepcid) 20 mg TID PO Last administered on 10/23/18at 07:58; Start at 09:00 Vitamin B Complex 1 cap DAILY PO Last administered on 10/23/18at 07:58; Start at 09:00 Warfarin Sodium (Coumadin Per Physician) 1 each PRN DAILY PRN MC SEE COMMENTS; Start 10/23/18 at 07:30 Active Scripts Active Reported B Complex (Vitamin B Complex) 1 Each Tablet 1 Each PO DAILY Nitrostat (Nitroglycerin) 0.4 Mg Tab.subl 0.4 Mg SL Warfarin Sodium 6 Mg Tablet 6 Mg PO DAILY Zocor (Simvastatin) 10 Mg Tablet 10 Mg PO Carvedilol (Carvedilol) 3.125 Mg Tablet 3.125 Mg PO BID Famotidine 20 Mg Tablet 20 Mg PO TID Cozaar (Losartan Potassium) 25 Mg Tablet 50 Mg PO DAILY Plavix (Clopidogrel Bisulfate) 75 Mg Tablet 75 Mg PO Calcium + D Soft Chewable Tab (Ca Carbonate/Vitamin D3/Vit K) 1 Each Tab.chew 1 Each PO Eulalia Chewable (Aspirin) 81 Mg Tab.chew 81 Mg PO M,W,F Allergies: Coded Allergies: Penicillins (Verified Allergy, Unknown, 06/27/14) Sulfa (Sulfonamide Antibiotics) (Verified Allergy, Unknown, 06/27/14) codeine (Verified Allergy, Unknown, 06/27/14) Review of System as per HPI or negative General: Alert, Oriented X3, Cooperative, No acute distress HEENT: Atraumatic, EOMI Lungs: Clear to auscultation Heart: Normal S1, Normal S2, Other (no gallops, clicks or rubs) Abdomen: Normal bowel sounds, Soft, No tenderness Extremities: No cyanosis, No edema, Normal pulses Neuro: Normal speech, Strength at 5/5 X4 ext Psych/Mental Status: Mental status NL, Mood NL VITALS Vital Signs Date Time Temp Pulse Resp B/P (MAP) Pulse Ox O2 Delivery O2 Flow Rate FiO2 10/23/18 07:58 82 155/69 10/23/18 06:08 97.8 20 96 10/22/18 22:30 Room Air Labs Laboratory Tests Test 10/22/18 19:44 10/22/18 20:05 10/23/18 06:07 White Blood Count 5.2 x10^3/uL (4.0-11.0) Red Blood Count 5.37 x10^6/uL (4.30-5.70) Hemoglobin 17.6 g/dL (13.0-17.5) Hematocrit 51.0 % (39.0-53.0) Mean Corpuscular Volume 95 fL (79-100) Mean Corpuscular Hemoglobin 33 pg (25-35) Mean Corpuscular Hemoglobin Concent 35 g/dL (31-37) Red Cell Distribution Width 14.2 % (11.5-14.5) Platelet Count 162 x10^3/uL (140-400) Neutrophils (%) (Auto) 62 % (31-73) Lymphocytes (%) (Auto) 27 % (24-48) Monocytes (%) (Auto) 9 % (0-9) Eosinophils (%) (Auto) 2 % (0-3) Basophils (%) (Auto) 1 % (0-3) Neutrophils # (Auto) 3.2 x10^3uL (1.8-7.7) Lymphocytes # (Auto) 1.4 x10^3/uL (1.0-4.8) Monocytes # (Auto) 0.5 x10^3/uL (0.0-1.1) Eosinophils # (Auto) 0.1 x10^3/uL (0.0-0.7) Basophils # (Auto) 0.0 x10^3/uL (0.0-0.2) Prothrombin Time 23.3 SEC (9.4-11.4) Prothromb Time International Ratio 2.4 (0.9-1.1) Activated Partial Thromboplast Time 35 SEC (23-33) D-Dimer (Maye) < 0.19 mg/L (0.00-0.50) Sodium Level 140 mmol/L (136-145) Potassium Level 3.7 mmol/L (3.5-5.1) Chloride Level 106 mmol/L (98-107) Carbon Dioxide Level 26 mmol/L (21-32) Anion Gap 8 (6-14) Blood Urea Nitrogen 19 mg/dL (8-26) Creatinine 0.9 mg/dL (0.7-1.3) Estimated GFR (Cockcroft-Gault) 81.4 Glucose Level 123 mg/dL (70-99) Calcium Level 8.8 mg/dL (8.5-10.1) Magnesium Level 2.1 mg/dL (1.8-2.4) Total Bilirubin 0.8 mg/dL (0.2-1.0) Direct Bilirubin 0.2 mg/dL (0.0-0.2) Aspartate Amino Transf (AST/SGOT) 25 U/L (15-37) Alanine Aminotransferase (ALT/SGPT) 34 U/L (16-63) Alkaline Phosphatase 72 U/L (46-116) Creatine Kinase 89 U/L (39-308) Troponin I Quantitative < 0.017 ng/mL (0-0.055) 0.120 ng/mL (0-0.055) OE-Eua-M-Type Natriuretic Peptide 255 pg/mL (0-449) Total Protein 6.6 g/dL (6.4-8.2) Albumin 3.7 g/dL (3.4-5.0) Lipase 153 U/L (73-393) Urine Collection Type Unknown Urine Color Yellow Urine Clarity Clear Urine pH 6.5 Urine Specific [place] 1.015 Urine Protein Neg (NEG-TRACE) Urine Glucose (UA) 100 mg/dL (NEG) Urine Ketones (Stick) Neg mg/dL (NEG) Urine Blood Neg (NEG) Urine Nitrite Neg (NEG) Urine Bilirubin Neg (NEG) Urine Urobilinogen Dipstick 0.2 mg/dL (0.2 mg/dL) Urine Leukocyte Esterase Neg (NEG) Urine RBC 0 /HPF (0-2) Urine WBC 0 /HPF (0-4) Urine Squamous Epithelial Cells Occ /LPF Urine Bacteria 0 /HPF (0-FEW) Urine Opiates Screen Neg (NEG) Urine Methadone Screen Neg (NEG) Urine Barbiturates Neg (NEG) Urine Phencyclidine Screen Neg (NEG) Urine Amphetamine/Methamphetamine Neg (NEG) Urine Benzodiazepines Screen Neg (NEG) Urine Cocaine Screen Neg (NEG) Urine Cannabinoids Screen Neg (NEG) Urine Ethyl Alcohol Neg (NEG) Images CXR - 1. There is no radiographic evidence of acute cardiopulmonary disease. EKG - sinus rhythm, early transition. IWMI age undet. no acute ischemic changes. Assessment/Plan 1. NSTEMI - Known 3 V CAD as described above. CP/Arm pain consistent with his prior angina and progressive over the last year. Continue beta blockers, add nitrate. Transfer to [facility] for cardiac cath to evaluate for progression of coronary disease. 2. HTN - resume home meds 3. HLD - check lipids, continue statin 4. PAF - currently SR. Warfarin for stroke prophylaxis. WAI CASTILLO MD 10/23/18 3969: CONSULT Assessment/Plan Patient seen and examined. Agree with RN LAB's assessment and plan. Chest pain with mixed features. Troponin level slightly elevated, could be non-STEMI type 2/demand ischemia. However, since symptoms have been progressive and he has history of coronary artery disease and multiple cardiovascular risk factors, but will proceed with cardiac catheterization for definitive evaluation. Risks and benefits were explained and he is agreeable. PAF, presently in sinus rhythm. INR therapeutic on warfarin. Thank you for your consultation. ISATU PEREIRA APRN Oct 23, 2018 09:17 WAI CASTILLO MD Oct 23, 2018 15:49
[2018-10-23] MEDS ORDERED: ISOSORBIDE MONONITRATE ER 30 MG TAB.ER.24H PO SCH (09:30)
[2018-10-23 09:58] VITALS: BP 138/59
--- NOTE | 2018-10-23 11:04 | NUR ---
NURSING NOTE TRANSFER PT TRANSFER TO [facility] TO [employer]GANIZATIONAL EFFECTIVENESS DIRECTOR VIA EMS ACCOMPANIED BY EMS PERSONNEL AT 1104. REPORT CALLED TO [facility] IN [employer]GANIZATIONAL EFFECTIVENESS DIRECTOR. WRITTEN CHART PRINTED FOR EMS TO TAKE TO [facility]. NO COMPLICATIONS. BHARATHI NELSON.
[2018-10-23 14:04] LABS: THYROID STIM HORMONE (TSH) 5.468 uIU/mL (0.358-3.740)
[2018-10-23] MEDS ORDERED: WARFARIN 6 MG TABLET. PO SCH (16:00)
--- NOTE | 2018-10-23 16:15 | EKG ---
[address] [address] Test Date: 2018-10-23 Test Time: 05:56:13 Pat Name: MAGGY CABALLERO Department: Room: 120 A Gender: M Office Coordinator: : 1940 Requested By: GOMEZ LAGUNA Order Number: [id number] Reading MD: Erich Edgar Measurements Intervals [place] Rate: 50 P: 24 UT: 202 QRS: -27 QRSD: 102 T: 31 QT: 450 QTc: 413 Interpretive Statements SINUS RHYTHM ATRIAL PREMATURE COMPLEX(ES) LEFTWARD AXIS LVH WITH REPOLARIZATION ABNORMALITY QRS(T) CONTOUR ABNORMALITY CONSISTENT WITH INFERIOR INFARCT PROBABLY OLD ABNORMAL ECG Electronically Signed On 10-29-2018 13:04:09 CDT by Erich Edgar
[2018-10-23] MEDS ORDERED: SIMVASTATIN 10 MG TABLET PO SCH (21:00)
[2018-10-24] MEDS ORDERED: ASPIRIN 81 MG TAB.CHEW PO SCH (08:00)
== END 2018-10-23 11:04 | disposition short-term general hospital (02) | DRG 282 ==
LOC: ER 19:40 → 1 SOUTH 21:00 → ER 21:33
PROVIDERS: ADMIT Internal Medicine; ATTEND Internal Medicine
DX: I21.4 Non-ST elevation (NSTEMI) myocardial infarction (principal); E78.00 Pure hypercholesterolemia, unspecified; E78.5 Hyperlipidemia, unspecified; E11.51 Type 2 diabetes mellitus with diabetic peripheral angiopathy without gangrene; I48.0 Paroxysmal atrial fibrillation; K21.9 Gastro-esophageal reflux disease without esophagitis; I25.10 Atherosclerotic heart disease of native coronary artery without angina pectoris; F41.9 Anxiety disorder, unspecified; I08.0 Rheumatic disorders of both mitral and aortic valves; I10 Essential (primary) hypertension; Z87.01 Personal history of pneumonia (recurrent); I25.2 Old myocardial infarction; Z79.01 Long term (current) use of anticoagulants; Z85.828 Personal history of other malignant neoplasm of skin; Z95.5 Presence of coronary angioplasty implant and graft; Z88.0 Allergy status to penicillin
CPT/HCPCS: 36415; 71045; 80048; 80061; 80076; 80307; 81001; 82550; 83690; 83735; 83880; 84443; 84484; 85025; 85379; 85610; 85730; 93005; 96360; J2060; 99285-25; J7030

== ENCOUNTER 2019-02-10 07:41 | Observation (INO) | payer MEDICARE, BC ==
[~2019-02-10] VITALS: Ht 170.2 cm; Wt 89.8 kg
[~2019-02-10 07:41] MED LIST changes: -NITR0.4T SL; +VITA1TAB19 PO
[2019-02-10] MEDS ORDERED: ASPIRIN 81 MG TAB.CHEW PO ONE (08:00)
[2019-02-10] MEDS ORDERED: NITROGLYCERIN SUBLINGUAL 0.4 MG BOTTLE OF 25. SL PRN ×3 (08:00→17:00)
--- NOTE | 2019-02-10 08:00 | PHYS DOC ---
Past History Past Medical History: A-Fib, Anxiety, CAD, Heart Disease, [place], Pneumonia Past Surgical History: Cancer Surgery, Cholecystectomy, Other Smoking: Non-smoker Alcohol Use: None Drug Use: None Adult General HPI HPI Patient is a 78-year-old male presents with intermittent chest pain for the past week to week and a half. Sometimes worse with exertion. Sometimes no change with exertion. Patient has noted his heart rate has been increasing and irregular, and noticing the symptoms of his atrial fibrillation more than usual. Notes the discomfort radiates to his right shoulder. This is the same discomfort as he was seen for and received a cardiac stent in October or November of this year. Patient denies any shortness of breath or respirophasic chest pain. Denies any nausea, vomiting, or diaphoresis. Symptoms resolved on their own within a few minutes. Patient is unable to say whether rest improves symptoms. Symptoms are mild to moderate in intensity at worst. Symptoms currently are 1 / 10.[] Review of Systems Review of Systems Constitutional: Denies fever or chills [] Eyes: Denies change in visual acuity, redness, or eye pain [] HENT: Denies nasal congestion or sore throat [] Respiratory: Denies cough or shortness of breath [] Cardiovascular: No additional information not addressed in HPI [] GI: Denies abdominal pain, nausea, vomiting, bloody stools or diarrhea [] : Denies dysuria or hematuria [] Musculoskeletal: Denies back pain or joint pain [] Integument: Denies rash or skin lesions [] Neurologic: Denies headache, focal weakness or sensory changes [] Endocrine: Denies polyuria or polydipsia [] All other systems were reviewed and found to be within normal limits, except as documented in this note. Allergies Allergies Allergies Coded Allergies Type Severity Reaction Last Updated Verified Penicillins Allergy Unknown 06/27/14 Yes Sulfa (Sulfonamide Antibiotics) Allergy Unknown 06/27/14 Yes codeine Allergy Unknown 06/27/14 Yes Physical Exam Physical Exam Constitutional: Well developed, well nourished, no acute distress, non-toxic appearance. [] HENT: Normocephalic, atraumatic, bilateral external ears normal, oropharynx moist, no oral exudates, nose normal. [] Eyes: PERRLA, EOMI, conjunctiva normal, no discharge. [] Neck: Normal range of motion, no tenderness, supple, no stridor. [] Cardiovascular:Heart rate irregularly irregular rhythm, no murmur [] Lungs & Thorax: Bilateral breath sounds clear to auscultation [] Abdomen: Bowel sounds normal, soft, no tenderness, no masses, no pulsatile masses. [] Skin: Warm, dry, no erythema, no rash. [] Back: No tenderness, no CVA tenderness. [] Extremities: No tenderness, no cyanosis, no clubbing, ROM intact, no edema. [] Neurologic: Alert and oriented X 3, normal motor function, normal sensory function, no focal deficits noted. [] Psychologic: Affect normal, judgement normal, mood normal. [] EKG EKG EKG shows a sinus rhythm at 59 bpm, frequent PVCs. Left axis, QTC of 424 ms, when compared with EKG of 10/23/2018 no acute changes are present.[] Radiology/Procedures Radiology/Procedures PROCEDURE: PORTABLE CHEST 1V Chest radiograph 02/10/2019 7:37 AM INDICATION: Chest pain COMPARISON: October 22, 2018 TECHNIQUE: Portable upright frontal view of the chest is provided. FINDINGS: The cardiomediastinal silhouette is within normal limits. There are no pleural effusions. There is no pulmonary vascular congestion. There is no pneumothorax. The lungs are clear. Outside right hilar lymph nodes are identified. No significant osseous abnormality is identified. IMPRESSION: No acute cardiopulmonary process.[] Course & Med Decision Making Course & Med Decision Making Pertinent Labs and Imaging studies reviewed. (See chart for details) Medical decision m[age]-year-old male with chest discomfort similar to previous need for cardiac stents. Admitting him for further evaluation and treatment. It does not appear to be an acute coronary syndrome. His INR is in the therapeutic range. There is no evidence of pneumonia, pneumothorax, nor pulmonary embolism. No evidence of esophageal rupture. No evidence of dissecting thoracic aneurysm. ED course: Patient arrived, was placed in bed, and tolerated exam well. After the return of lab and imaging studies, these were discussed with the patient who voiced understanding. Consultation was made with the hospitalist service for admission. Patient was admitted in improved condition.[] Dragon Disclaimer Dragon Disclaimer This electronic medical record was generated, in whole or in part, using a voice recognition dictation system. Departure Departure: Impression: Primary Impression: Chest pain Disposition: 09 ADMITTED INPATIENT Admitting Physician: Jacob Pérez Condition: IMPROVED Referrals: KAYLEIGH TORRES (PCP) Problem Qualifiers Primary Impression: Chest pain Chest pain type: unspecified Qualified Codes: R07.9 - Chest pain, unspecified KRIS HOLLINGSWORTH DO Feb 10, 2019 08:00
--- NOTE | 2019-02-10 08:20 | RAD ---
Chest radiograph 02/10/2019 7:37 AM INDICATION: Chest pain COMPARISON: October 22, 2018 TECHNIQUE: Portable upright frontal view of the chest is provided. FINDINGS: The cardiomediastinal silhouette is within normal limits. There are no pleural effusions. There is no pulmonary vascular congestion. There is no pneumothorax. The lungs are clear. Outside right hilar lymph nodes are identified. No significant osseous abnormality is identified. IMPRESSION: No acute cardiopulmonary process. Electronically signed by: Sultana Locke MD (02/10/2019 8:17 AM) [facility]
[2019-02-10 08:38] LABS: BASO % 0 % (0-3); EOS # 0.1 x10^3/uL (0.0-0.7); EOS % 2 % (0-3); HEMATOCRIT 52.2 % (39.0-53.0); HEMOGLOBIN 17.6 g/dL (13.0-17.5); LYMPH % 16 % (24-48); MEAN CORPUSCULAR HEMOGLOBIN 33 pg (25-35); MEAN CORPUSCULAR HGB CONC 34 g/dL (31-37); MEAN CORPUSCULAR VOLUME 98 fL (79-100); MONO # 0.5 x10^3/uL (0.0-1.1); MONO % 9 % (0-9); NEUT # 4.3 x10^3uL (1.8-7.7); NEUT % 73 % (31-73); PLATELET COUNT 169 x10^3/uL (140-400); RED BLOOD COUNT 5.34 x10^6/uL (4.30-5.70); RED CELL DISTRIBUTION WIDTH 14.1 % (11.5-14.5); WHITE BLOOD COUNT 5.9 x10^3/uL (4.0-11.0)
[2019-02-10 08:59] LABS: ALBUMIN 3.8 g/dL (3.4-5.0); ALBUMIN/GLOBULIN RATIO 1.4 (1.0-1.7); CALCIUM 8.9 mg/dL (8.5-10.1); CREATININE 0.9 mg/dL (0.7-1.3); GFR 81.4; MAGNESIUM 2.2 mg/dL (1.8-2.4); POTASSIUM 4.2 mmol/L (3.5-5.1); TOTAL BILIRUBIN 1.1 mg/dL (0.2-1.0); TOTAL PROTEIN 6.5 g/dL (6.4-8.2)
[2019-02-10] MEDS ORDERED: ONDANSETRON PF 4 MG/2 ML VIAL. IV PRN (09:30)
[2019-02-10] MEDS ORDERED: ACETAMINOPHEN 325 MG TABLET PO PRN (09:30)
--- NOTE | 2019-02-10 10:22 | PDOC2 ---
CONSULT Date of Admission DATE: 02/10/19 TIME: 10:22 Reason for Consult: Chest pain Referring Physician: Dr. Pérez Chief Complaint Chest pain Source: Chart review, Patient Problem List Problems Medical Problems: (1) Chest pain Status: Acute History of Present Illness 78-year-old male with history of coronary artery disease and paroxysmal atrial fibrillation presented complaining of approximately 2 week history of intermittent episodes of right-sided chest pain radiating to right shoulder and arm. This is not related to exertion or food intake. He denied any orthopnea/PND, palpitations, syncope or claudication. Past Medical History Coronary artery disease s/p PCI/stent to LCx in the past and more recent PCI/CATALINA to LAD in October 2018 Paroxysmal atrial fibrillation Hypertension Hyperlipidemia Venous insufficiency Past Surgical History Cholecystectomy Hernia repair Prostatectomy Basal cell cancer removal Family History Hypertension and cancer Social History Denied any smoking, alcohol or drug use Current Medications Current Medications Aspirin (Children'S Aspirin) 324 mg 1X ONCE PO Last administered on 02/10/19at 08:21; Start 02/10/19 at 08:00; Stop 02/10/19 at 08:01; Status DC Nitroglycerin (Nitrostat) 0.4 mg PRN Q5MIN PRN SL CP RATING > 1/10; Start 02/10/19 at 08:00; Stop 02/11/19 at 07:59 Ondansetron HCl (Zofran) 4 mg PRN Q4HRS PRN IV NAUSEA/VOMITING; Start 02/10/19 at 09:30; Stop 02/11/19 at 09:29 Acetaminophen (Tylenol) 650 mg PRN Q4HRS PRN PO FEVER; Start 02/10/19 at 09:30; Stop 02/11/19 at 09:29 Nitroglycerin (Nitrostat) 0.4 mg PRN Q5MIN PRN SL CHEST PAIN; Start 02/10/19 at 09:30; Stop 02/11/19 at 09:29 Active Scripts Active Reported B Complex (Vitamin B Complex) 1 Each Tablet 1 Each PO DAILY Nitrostat (Nitroglycerin) 0.4 Mg Tab.subl 0.4 Mg SL Warfarin Sodium 6 Mg Tablet 6 Mg PO DAILY Zocor (Simvastatin) 10 Mg Tablet 10 Mg PO Carvedilol (Carvedilol) 3.125 Mg Tablet 3.125 Mg PO BID Famotidine 20 Mg Tablet 20 Mg PO TID Cozaar (Losartan Potassium) 25 Mg Tablet 50 Mg PO DAILY Plavix (Clopidogrel Bisulfate) 75 Mg Tablet 75 Mg PO Calcium + D Soft Chewable Tab (Ca Carbonate/Vitamin D3/Vit K) 1 Each Tab.chew 1 Each PO Eulalia Chewable (Aspirin) 81 Mg Tab.chew 81 Mg PO M,W,F Allergies: Coded Allergies: Penicillins (Verified Allergy, Unknown, 06/27/14) Sulfa (Sulfonamide Antibiotics) (Verified Allergy, Unknown, 06/27/14) codeine (Verified Allergy, Unknown, 06/27/14) PSYCHOLOGICAL ROS: No: Hallucinations Eyes: No: Loss of vision HEENT: No: Epistaxis Respiratory: No: Hemoptysis Cardiovascular: yes: Chest Pain Gastrointestinal: No: Vomiting, Diarrhea Genitourinary: No: Henaturia Neurological: No: Seizures Skin: No: Rash General: Alert, Oriented X3 HEENT: Atraumatic Lungs: Clear to auscultation Heart: Regular rate Abdomen: Soft, No tenderness Extremities: No edema Neuro: Normal speech Psych/Mental Status: Mood NL VITALS Vital Signs Date Time Temp Pulse Resp B/P (MAP) Pulse Ox O2 Delivery O2 Flow Rate FiO2 02/10/19 10:13 59 18 168/60 (96) 95 Room Air 02/10/19 07:53 98.1 Labs Laboratory Tests Test 02/10/19 08:17 White Blood Count 5.9 x10^3/uL (4.0-11.0) Red Blood Count 5.34 x10^6/uL (4.30-5.70) Hemoglobin 17.6 g/dL (13.0-17.5) Hematocrit 52.2 % (39.0-53.0) Mean Corpuscular Volume 98 fL (79-100) Mean Corpuscular Hemoglobin 33 pg (25-35) Mean Corpuscular Hemoglobin Concent 34 g/dL (31-37) Red Cell Distribution Width 14.1 % (11.5-14.5) Platelet Count 169 x10^3/uL (140-400) Neutrophils (%) (Auto) 73 % (31-73) Lymphocytes (%) (Auto) 16 % (24-48) Monocytes (%) (Auto) 9 % (0-9) Eosinophils (%) (Auto) 2 % (0-3) Basophils (%) (Auto) 0 % (0-3) Neutrophils # (Auto) 4.3 x10^3uL (1.8-7.7) Lymphocytes # (Auto) 1.0 x10^3/uL (1.0-4.8) Monocytes # (Auto) 0.5 x10^3/uL (0.0-1.1) Eosinophils # (Auto) 0.1 x10^3/uL (0.0-0.7) Basophils # (Auto) 0.0 x10^3/uL (0.0-0.2) Prothrombin Time 30.5 SEC (9.4-11.4) Prothromb Time International Ratio 2.9 (0.9-1.1) Activated Partial Thromboplast Time 38 SEC (23-33) Sodium Level 139 mmol/L (136-145) Potassium Level 4.2 mmol/L (3.5-5.1) Chloride Level 107 mmol/L (98-107) Carbon Dioxide Level 24 mmol/L (21-32) Anion Gap 8 (6-14) Blood Urea Nitrogen 13 mg/dL (8-26) Creatinine 0.9 mg/dL (0.7-1.3) Estimated GFR (Cockcroft-Gault) 81.4 BUN/Creatinine Ratio 14 (6-20) Glucose Level 109 mg/dL (70-99) Calcium Level 8.9 mg/dL (8.5-10.1) Magnesium Level 2.2 mg/dL (1.8-2.4) Total Bilirubin 1.1 mg/dL (0.2-1.0) Aspartate Amino Transf (AST/SGOT) 27 U/L (15-37) Alanine Aminotransferase (ALT/SGPT) 30 U/L (16-63) Alkaline Phosphatase 66 U/L (46-116) Troponin I Quantitative < 0.017 ng/mL (0-0.055) HF-Gut-C-Type Natriuretic Peptide 248 pg/mL (0-449) Total Protein 6.5 g/dL (6.4-8.2) Albumin 3.8 g/dL (3.4-5.0) Albumin/Globulin Ratio 1.4 (1.0-1.7) Lipase 115 U/L (73-393) Assessment/Plan 1. Chest pain with atypical features. Patient has known history of coronary artery disease and underwent recent PCI/CATALINA to LAD in October 2018. The previously placed stent in LCx was patent. He has known chronic total occlusion of RCA. 2-D echo 10/2018 showed normal LV function. Monitor serial cardiac enzymes. Continue current secondary prevention measures. 2. Accelerated hypertension: Resume home medications and titrate for better control. 3. Paroxysmal atrial fibrillation: Presently in sinus rhythm. Continue warfarin for stroke prophylaxis. 4. Hyperlipidemia: Continue statin therapy Thank you for your consultation WAI CASTILLO MD Feb 10, 2019 10:22
[2019-02-10] MEDS ORDERED: FAMO-63 PO (11:04)
[2019-02-10 11:06] VITALS: BP 197/78
[2019-02-10 15:41] VITALS: BP 152/66
--- NOTE | 2019-02-10 16:46 | HP ---
ADMIT DATE: 02/10/2019 HISTORY OF PRESENT ILLNESS: The patient is a 78-year-old male patient who came to the Emergency Room complaining of intermittent chest discomfort that had been there for almost a week and a half ago. There was no clear cut relation with exertion, sometimes no change with exertion. He has noted that his heart rate has been increasing and irregular with symptoms of atrial fibrillation more than usual, discomfort radiates to his both shoulders and armpits. He stated that this is the same discomfort that he had felt when he received his cardiac stent in October or November of this year. He denied any shortness of breath. Denied any nausea, vomiting or diaphoresis. Symptoms last up to 30 to 40 minutes and resolved completely on its own. By the time he arrived to the Emergency Room, his discomfort was rated as 1/10. He was evaluated there and his EKG showed that he was in sinus rhythm at 59 beats per minute with frequent PVCs, left axis with no change compared to an EKG done on 10/23/2018. He has had lab work, which showed that his first set of cardiac enzyme was less than 0.017. He was admitted to rule out myocardial infarction and to consult the Cardiology team. PAST MEDICAL HISTORY: Significant for hypertension, hyperlipidemia, coronary artery disease, status post myocardial infarction in 2010, history of atrial fibrillation, nephrolithiasis and benign prostatic hypertrophy. PAST SURGICAL HISTORY: Significant for PCI with stent deployment x 2, one in 2010, one in . He had surgical treatment of pyloric stenosis, multiple hernia repairs. He had cholecystectomy. He had laser treatment for prostate enlargement, Fisher cyst removal, Geon-Schlatter and bilateral cataract extraction. He had right rotator cuff surgical repair. He had also cystoscopy and retrograde bilateral ureteroscopy of the left kidney. ALLERGIES: He is allergic to PENICILLIN, SULFA, CODEINE and OPIOID. FAMILY HISTORY: His mother at the age of 93 of natural causes. Brother at the age of 66 because of cancer and another brother still alive. Sister is still living. His father at the age of 64 because of injuries related to fall and possible stroke. SOCIAL HISTORY: He is , has 2 daughters and 2 sons. He does not smoke, does not drink alcohol or use recreational drugs. MEDICATIONS: He is currently on following medications: He is on aspirin 81 mg once a day, B complex vitamins once a day, calcium with vitamin D 1 tablet once a day, Plavix 75 mg once a day, famotidine 20 mg twice a day, losartan potassium 50 mg daily, carvedilol 3.125 mg twice a day, Zocor 10 mg at bedtime and warfarin 6 mg at bedtime. REVIEW OF SYSTEMS: The patient has had bilateral cataract extraction, but denied any glaucoma or macular degeneration. Denied any earache, tinnitus or sensorineural deafness. Denied any nosebleeds, stuffy nose or postnasal drip. Denied any sore throat, sore tongue, toothache, hoarseness of voice or difficulty swallowing. Denied any nausea, vomiting, diarrhea or constipation. Denied any hematemesis, melena or hematochezia. Denied any dysuria, frequency or hematuria. He had chest discomfort. Denied any orthopnea or paroxysmal nocturnal dyspnea. Denied any cough, phlegm or hemoptysis. PHYSICAL EXAMINATION: GENERAL: On arrival to the Emergency Room, he looked well and was clearly in no apparent respiratory distress, slightly pale, but no jaundice or cyanosis. No lymphadenopathy. No thyromegaly. No jugular venous distention. No lower limb edema. VITAL SIGNS: His heart rate was 65, blood pressure was 168/60, temperature was 98.1, respiratory rate was 22 and oxygen saturation was 98% on room air. HEAD, EYES, EARS, NOSE AND THROAT: Normocephalic, atraumatic. NECK: Supple. HEART: Showed normal first and second heart sounds. No gallop, rub or murmur. CHEST: Clear to auscultation. No crepitation or rhonchi. ABDOMEN: Nondistended, soft, nontender. NEUROLOGIC: He was awake, alert, responding appropriately. All cranial nerves intact. EXTREMITIES: He moves extremities without difficulty. He ambulates without assistance or assistive devices. LABORATORY DATA: His lab work on arrival to the Emergency Room showed a white cell count 5900, hemoglobin 17.6, hematocrit 52, MCV 98 and platelet count of 169,000. Serum sodium 139, potassium 4.2, chloride 107, bicarbonate 24, anion gap of 8, BUN 13, creatinine 0.9, estimated GFR was 81 mL per minute. His glucose was 109, calcium was 8.9, magnesium was 2.2, total bilirubin slightly elevated at 1.1. However, AST, ALT, alkaline phosphatase were normal. His first set of cardiac enzymes showed troponin to be less than 0.017. His beta natriuretic peptide was 248. Total protein was 6.5, albumin was 3.8. Lipase was 115. His prothrombin time was 30.5, INR of 2.9, aPTT was 38. IMPRESSION: In summary, this is a 78-year-old male patient who came in with recurrent episode of what seems palpitation and fast irregular heart rate. He had also some chest discomfort mostly involving his shoulders and armpits. He denied any nausea or vomiting. Denied any diaphoresis. He had mild shortness of breath, but denied any orthopnea or paroxysmal nocturnal dyspnea. His chest x-ray showed that the cardiomediastinal silhouette was within normal limits. There are no pleural effusions. There is no pulmonary vascular congestion or pneumothorax. The lungs are clear aside the right hilar lymph nodes are identified. No significant osseous abnormalities identified. The patient will be admitted to do 2 more sets of cardiac enzyme and to consult the Cardiology and check his fasting lipid profile. GOMEZ LAGUNA MD DR: RAHEEM/calin JOB#: [id number] / [id number]
[2019-02-10] MEDS: CALCIUM CARB/VIT D3 500/200 TABLET PO SCH (17:35)
[2019-02-10] MEDS: CARVEDILOL 3.125 MG TABLET PO SCH (19:44)
[2019-02-10] MEDS: FAMOTIDINE 20 MG TABLET PO SCH (19:44)
[2019-02-10 20:26] VITALS: BP 182/72
[2019-02-10] MEDS ORDERED: SIMVASTATIN 10 MG TABLET PO SCH (21:00)
[2019-02-10] MEDS ORDERED: NITR0.4T SL (21:45)
[2019-02-10 23:14] VITALS: BP 167/79
[2019-02-11 05:34] VITALS: BP 168/80
[2019-02-11 06:40] LABS: CALCIUM 8.9 mg/dL (8.5-10.1); GFR 72.1; POTASSIUM 3.7 mmol/L (3.5-5.1)
[2019-02-11] MEDS ORDERED: LOSARTAN 25 MG TABLET. PO SCH (09:00)
[2019-02-11] MEDS ORDERED: VITAMIN B COMPLEX CAPSULE. PO SCH (09:00)
[2019-02-11] MEDS ORDERED: CLOPIDOGREL BISULFATE 75 MG TABLET PO SCH (09:00)
[2019-02-11] MEDS: CALCIUM CARB/VIT D3 500/200 TABLET PO SCH (09:05)
[2019-02-11] MEDS: CARVEDILOL 3.125 MG TABLET PO SCH (09:06)
[2019-02-11] MEDS: FAMOTIDINE 20 MG TABLET PO SCH ×2 (09:06→13:04)
--- NOTE | 2019-02-11 09:56 | EKG ---
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
[2019-02-11 10:59] VITALS: BP 169/73
[2019-02-11] MEDS ORDERED: FAMOTIDINE 20 MG PO SCH (12:00)
[2019-02-11 13:31] LABS: THYROID STIM HORMONE (TSH) 2.987 uIU/mL (0.358-3.740)
[2019-02-11] MEDS ORDERED: WARF-78 PO (13:54)
[2019-02-11] MEDS ORDERED: LOSA100T14 PO (14:04)
--- NOTE | 2019-02-11 14:19 | DS ---
DATE OF DISCHARGE: 02/11/2019 HOSPITAL COURSE: The patient is sitting on the edge of the bed comfortably in no apparent distress. He was admitted yesterday with chest discomfort, which has been there for almost a week and half ago. No clearcut relationship with exertion. He has also some palpitation and he has had 3 sets of cardiac enzymes, all of them ruled out myocardial infarction. His fasting lipid profile, which showed his serum triglycerides were 88, cholesterol was 124, LDL was 57, VLDL was 17, HDL cholesterol was 50, and the ratio was 2 and he was evaluated by the Cardiology team and the plan was to discharge him home to follow with them as an outpatient in their office. PHYSICAL EXAMINATION: GENERAL: When I saw him this afternoon, he was sitting on the edge of the bed comfortably in no apparent respiratory distress. No pallor, jaundice, cyanosis or thyromegaly. No jugular venous distention. No limb edema. VITAL SIGNS: His heart rate was 51, blood pressure was 169/73, temperature was 97.3, respiratory rate 20, and oxygen saturation was 96%. HEAD, EYES, EARS, NOSE AND THROAT: Showed normocephalic, atraumatic. NECK: Supple. HEART: Showed normal first and second heart sounds. No gallop, rub or murmur. CHEST: Clear to auscultation. No crepitation or rhonchi. ABDOMEN: Distended, soft, nontender. NEUROLOGIC: He is awake, alert, and responding appropriately. He ambulates without assistance or assistive devices. LABORATORY DATA: His lab work this morning showed a serum sodium 139, potassium 3.7, chloride 107, bicarbonate 24, anion gap of 8, BUN 12, creatinine 1, estimated GFR was 72 mL per minute, his glucose was 98, calcium was 8.9, has 3 sets of cardiac enzymes that ruled out myocardial infarction. His triglycerides were 88, total cholesterol 124, LDL cholesterol 57, VLDL was 17, and HDL cholesterol was 50, the ratio of cholesterol to HDL cholesterol was only 2. TSH was normal at 2.987. His white cell count was 5900, hemoglobin 17.6, hematocrit 52, MCV 98 and platelet count of 169,000. His prothrombin time was 13.5, INR 2.9, aPTT was 38. DISCHARGE MEDICATIONS: He was discharged home to continue on following medications: Warfarin 5 mg once a day, calcium carbonate with vitamin D, chewable tablet 1 tablet once a day, carvedilol 3.125 mg twice a day, Plavix 75 mg once a day, famotidine 20 mg, losartan potassium 50 mg once a day, simvastatin, nitroglycerin, and Zocor 10 mg daily, simvastatin 10 mg at bedtime, vitamin B complex 1 tablet once a day. FINAL DISCHARGE DIAGNOSES: 1. Atypical chest pain, myocardial infarction ruled out. Apparently, he underwent PCI with a drug-eluting stent to LAD in 10/2018. 2. Accelerated hypertension, much improved. 3. Paroxysmal atrial fibrillation, currently in sinus rhythm. Continue with the warfarin for stroke prevention. 4. Hyperlipidemia. GOMEZ LAGUNA MD DR: RAHEEM/calin JOB#: [id number] / [id number]
== END 2019-02-11 15:30 | disposition home or self-care (01) ==
LOC: ER 07:41 → 1 SOUTH 10:03
PROVIDERS: ADMIT Internal Medicine; ATTEND Internal Medicine
DX: R07.89 Other chest pain (principal); I48.0 Paroxysmal atrial fibrillation; F41.9 Anxiety disorder, unspecified; I25.10 Atherosclerotic heart disease of native coronary artery without angina pectoris; I25.2 Old myocardial infarction; I10 Essential (primary) hypertension; E78.5 Hyperlipidemia, unspecified; N40.0 Benign prostatic hyperplasia without lower urinary tract symptoms; I25.82 Chronic total occlusion of coronary artery; I87.2 Venous insufficiency (chronic) (peripheral); Z82.49 Family history of ischemic heart disease and other diseases of the circulatory system; Z85.828 Personal history of other malignant neoplasm of skin; Z87.442 Personal history of urinary calculi; Z95.5 Presence of coronary angioplasty implant and graft; Z90.49 Acquired absence of other specified parts of digestive tract; Z98.41 Cataract extraction status, right eye; Z98.42 Cataract extraction status, left eye
CPT/HCPCS: 36415; 71045; 80048; 80053; 80061; 83690; 83735; 83880; 84443; 84484; 85025; 85610; 85730; 93005; 99284; G0378; G0379

== ENCOUNTER 2019-07-08 11:10 | Inpatient (IN) | payer MEDICARE, BC ==
[~2019-07-08] VITALS: Ht 170.2 cm; Wt 89.4 kg
[~2019-07-08 11:10] MED LIST changes: +FAMO-63 PO; +LOSA100T14 PO; +NITR0.4T24 SL; +WARF-78 PO
--- NOTE | 2019-07-08 11:35 | PHYS DOC ---
Past History Past Medical History: A-Fib, Anxiety, CAD, Heart Disease, [place], Pneumonia Past Surgical History: Cancer Surgery, Cholecystectomy, Other Smoking: Non-smoker Alcohol Use: None Drug Use: None Adult General Chief Complaint Chief Complaint: CHEST PAIN HPI HPI Patient is an 79-year-old male who presents with report of chest discomfort that started approximately 4 days ago and has been intermittent in nature. He states that when he is resting, he has no pain but states that when he gets up and starts moving around that he develops pain. He states the pain is primarily in his left axilla. He denies any nausea, vomiting or diaphoresis. He states that at its worst pain is been about a 3 or 4 out of 10. He states that currently he has no pain. Patient does indicate that he has a very strong cardiac history. He is on warfarin and Plavix.[] Review of Systems Review of Systems Constitutional: Denies fever or chills [] Respiratory: Denies cough or shortness of breath [] Cardiovascular: No additional information not addressed in HPI [] Integument: Denies rash or skin lesions [] Neurologic: Denies headache, focal weakness or sensory changes [] All other systems were reviewed and found to be within normal limits, except as documented in this note. Allergies Allergies Allergies Coded Allergies Type Severity Reaction Last Updated Verified Penicillins Allergy Intermediate 02/10/19 Yes Sulfa (Sulfonamide Antibiotics) Allergy Intermediate 02/10/19 Yes codeine Allergy Intermediate 02/10/19 Yes Physical Exam Physical Exam Constitutional: Well developed, well nourished, no acute distress, non-toxic appearance. [] HENT: Normocephalic, atraumatic, bilateral external ears normal, oropharynx moist, no oral exudates, nose normal. [] Eyes: PERRLA, EOMI, conjunctiva normal, no discharge. [] Neck: Normal range of motion, no tenderness, supple, no stridor. [] Cardiovascular: Regular rate and rhythm[] Lungs & Thorax: Bilateral breath sounds clear to auscultation [] Abdomen: Bowel sounds normal, soft, no tenderness. [] Skin: Warm, dry, no erythema, no rash. [] Extremities: No tenderness, no cyanosis, no clubbing, ROM intact, no edema. [] Neurologic: Alert and oriented X 3, no focal deficits noted. [] EKG EKG EKG demonstrates normal sinus rhythm with rate of 55.[] Radiology/Procedures Radiology/Procedures [] Impressions: PROCEDURE: PORTABLE CHEST 1V Examination: PORTABLE CHEST 1V History: Chest pain Comparison/Correlation: 02/10/2019 portable chest x-ray exam Findings: Portable frontal view chest was obtained. Heart size and pulmonary vessels are normal. No infiltrate or pleural effusion. No pneumothorax. Bony structures unremarkable. Deformity of the distal right clavicle which may relate to prior surgical intervention noted. Impression: No active disease. Electronically signed by: Honorio Caballero MD (07/08/2019 11:47 AM) [facility] Course & Med Decision Making Course & Med Decision Making Pertinent Labs and Imaging studies reviewed. (See chart for details) [] Dragon Disclaimer Dragon Disclaimer This electronic medical record was generated, in whole or in part, using a voice recognition dictation system. Departure Departure: Impression: Primary Impression: Chest pain Additional Impression: Unstable angina Disposition: 09 ADMITTED INPATIENT Admitting Physician: Jacob Pérez Condition: IMPROVED Referrals: KAYLEIGH TORRES (PCP) Problem Qualifiers Primary Impression: Chest pain Chest pain type: unspecified Qualified Codes: R07.9 - Chest pain, unspecified JADE MARINA Jr. DO Jul 08, 2019 11:35
[2019-07-08 11:48] LABS: BASO % 1 % (0-3); EOS # 0.1 x10^3/uL (0.0-0.7); EOS % 2 % (0-3); HEMATOCRIT 50.1 % (39.0-53.0); HEMOGLOBIN 17.4 g/dL (13.0-17.5); LYMPH # 0.8 x10^3/uL (1.0-4.8); LYMPH % 16 % (24-48); MEAN CORPUSCULAR HEMOGLOBIN 33 pg (25-35); MEAN CORPUSCULAR HGB CONC 35 g/dL (31-37); MEAN CORPUSCULAR VOLUME 95 fL (79-100); MONO # 0.5 x10^3/uL (0.0-1.1); MONO % 10 % (0-9); NEUT # 3.8 x10^3uL (1.8-7.7); NEUT % 71 % (31-73); PLATELET COUNT 170 x10^3/uL (140-400); RED BLOOD COUNT 5.28 x10^6/uL (4.30-5.70); RED CELL DISTRIBUTION WIDTH 13.6 % (11.5-14.5); WHITE BLOOD COUNT 5.3 x10^3/uL (4.0-11.0)
--- NOTE | 2019-07-08 11:50 | RAD ---
Examination: PORTABLE CHEST 1V History: Chest pain Comparison/Correlation: 02/10/2019 portable chest x-ray exam Findings: Portable frontal view chest was obtained. Heart size and pulmonary vessels are normal. No infiltrate or pleural effusion. No pneumothorax. Bony structures unremarkable. Deformity of the distal right clavicle which may relate to prior surgical intervention noted. Impression: No active disease. Electronically signed by: Honorio Caballero MD (07/08/2019 11:47 AM) [facility]
[2019-07-08 11:58] LABS: CALCIUM 8.5 mg/dL (8.5-10.1); GFR 71.9
[2019-07-08 12:04] LABS: ALBUMIN 3.5 g/dL (3.4-5.0); ALBUMIN/GLOBULIN RATIO 1.2 (1.0-1.7); MAGNESIUM 2.1 mg/dL (1.8-2.4); TOTAL BILIRUBIN 1.5 mg/dL (0.2-1.0); TOTAL PROTEIN 6.5 g/dL (6.4-8.2)
[2019-07-08] MEDS ORDERED: ONDANSETRON PF 4 MG/2 ML VIAL. IV PRN (13:45)
[2019-07-08] MEDS ORDERED: MORPHINE SULFATE 2 MG/ML DISP.SYRIN. IV PRN (13:45)
[2019-07-08 14:20] VITALS: BP 177/69
--- NOTE | 2019-07-08 14:20 | NUR ---
pt arrived to unit at 1418 via gurney via EMS in stable condition. pt is on RA and is alert and oriented. pt oriented to room and instructed on how to use call light. vital signs taken and assessment completed at this time. pt is not complaining of any pain at this time. pt is changed into hospital gown and placed on monitor. will continue to monitor.
--- NOTE | 2019-07-08 15:54 | CONS ---
DATE OF CONSULTATION: 07/08/2019 REASON FOR CONSULTATION: Chest pain. HISTORY OF PRESENT ILLNESS: The patient is a pleasant 79-year-old male with past medical history as noted below, coming into the hospital in the setting of some chest discomfort. He reports over the last 3-4 days, he has had some chest discomfort with activity, which usually resolves after he lies down. He describes discomfort mostly in his axilla bilaterally and also has some tingling in his fingertips. He does not have any classic anginal symptoms. He also suspects that part of this may be his anxiety. He denies any palpitations, orthopnea, PND or lower extremity edema. No syncope. He reports compliance with his medications, but is unclear about his medication list. In the ER, upon arrival, his vital signs were unremarkable. Initial cardiac enzymes and EKG were unremarkable and he was admitted for further evaluation and treatment. PAST MEDICAL HISTORY: 1. Coronary artery disease, status post PCI to the LAD in 10/2018, prior history of PCI to the left circumflex. 2. Hypertension. 3. Dyslipidemia. 4. Venous insufficiency. 5. Paroxysmal atrial fibrillation. PAST SURGICAL HISTORY: Includes cholecystectomy, hernia repair and prostatectomy. FAMILY HISTORY: Notable for hypertension and cancer. SOCIAL HISTORY: No alcohol, tobacco or illicit drug use. CURRENT CARDIOVASCULAR MEDICATIONS: Include carvedilol, Cozaar, Plavix, warfarin and Zocor. ALLERGIES: PENICILLINS, SULFA AND CODEINE. PHYSICAL EXAMINATION: VITAL SIGNS: Stable. HEAD AND NECK: Unremarkable. CARDIAC: Regular rate and rhythm without murmurs, rubs or gallops. LUNGS: Clear to auscultation bilaterally. ABDOMEN: Soft, nontender, nondistended. EXTREMITIES: No clubbing, cyanosis or edema. NEUROLOGIC: No focal deficits. MUSCULOSKELETAL: No trauma. DIAGNOSTIC STUDIES: EKG is notable for sinus rhythm with subtle T-wave peaking in V2 and V3 without any obvious ischemic findings. Cardiac catheterization as noted above, had 3-vessel coronary artery disease with patent stents in the circumflex and PCI to the LAD was performed in 10/2018. Echocardiogram from 12/2017 reveals normal LV function without any significant valvular disease. Hemoglobin, platelets, creatinine are within normal limits. LDL in 02/2019 was within normal limits. IMPRESSION: 1. Atypical chest pain. 2. Known coronary artery disease. 3. Hypertension. 4. Dyslipidemia. 5. Paroxysmal atrial fibrillation, currently in sinus rhythm. RECOMMENDATIONS: At this present time, we will continue to cycle his enzymes. If his cardiac enzymes are unremarkable and his repeat EKG is unremarkable, then we will plan for initiation of low dose Imdur therapy and discharge to home tomorrow. He could be evaluated for an outpatient ischemic test depending on his symptoms and control on medical therapy. I had a long discussion with the patient regarding repeat cardiac catheterization versus conservative management and he wishes conservative management, which I think is entirely reasonable given that he does not have any acute coronary syndrome findings. Thank you for this consultation. KARISSA DEUTSCH MD DR: ENIO/calin JOB#: [id number] / [id number]
[2019-07-08 16:43] VITALS: BP 160/74
--- NOTE | 2019-07-08 16:50 | EKG ---
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
[2019-07-08] MEDS ORDERED: WARF6TAB PO (17:35)
[2019-07-08] MEDS ORDERED: WARF-78 PO (17:35)
[2019-07-08 18:00] VITALS: BP 162/69
[2019-07-08] MEDS ORDERED: NITROGLYCERIN SUBLINGUAL 0.4 MG BOTTLE OF 25. SL SCH (21:30)
[2019-07-08] MEDS ORDERED: SIMVASTATIN 10 MG TABLET PO SCH (22:00)
[2019-07-08] MEDS: FAMOTIDINE 20 MG TABLET PO SCH (22:00)
[2019-07-08] MEDS: CARVEDILOL 3.125 MG TABLET PO SCH (22:00)
[2019-07-08 23:00] VITALS: BP 151/66
--- NOTE | 2019-07-09 06:14 | NUR ---
Shift Note: Pt is a/o x4, VSS, no c/o pain or n/v throughout the shift, labs are WNL, IV is saline locked. Pt anticipating discharge to home today.
--- NOTE | 2019-07-09 07:27 | PDOC ---
CAROL GARY SEAFOOD CLERK 07/09/19 0727: CARDIO Progress Notes Date & Time Date of Service DATE: 07/09/19 TIME: 07:24 Time of Evaluation 07:24 Subjective Notes No further chest pain. No palpitations, dizziness, diaphoresis, or nausea/vomiting. Vitals Vitals Vital Signs Date Time Temp Pulse Resp B/P (MAP) Pulse Ox O2 Delivery O2 Flow Rate FiO2 07/08/19 23:00 97.3 68 18 151/66 (94) 94 Room Air Weight Weight [ ] Input and Output I.O. Intake and Output 07/09/19 06:59 Intake Total 180 ml Output Total 400 ml Balance -220 ml Intake Oral 180 ml Output Urine Total 400 ml # Voids 1 # Bowel Movements 1 Laboratory Labs Laboratory Tests Test 07/08/19 11:24 07/09/19 06:00 White Blood Count 5.3 x10^3/uL (4.0-11.0) Red Blood Count 5.28 x10^6/uL (4.30-5.70) Hemoglobin 17.4 g/dL (13.0-17.5) Hematocrit 50.1 % (39.0-53.0) Mean Corpuscular Volume 95 fL (79-100) Mean Corpuscular Hemoglobin 33 pg (25-35) Mean Corpuscular Hemoglobin Concent 35 g/dL (31-37) Red Cell Distribution Width 13.6 % (11.5-14.5) Platelet Count 170 x10^3/uL (140-400) Neutrophils (%) (Auto) 71 % (31-73) Lymphocytes (%) (Auto) 16 % (24-48) Monocytes (%) (Auto) 10 % (0-9) Eosinophils (%) (Auto) 2 % (0-3) Basophils (%) (Auto) 1 % (0-3) Neutrophils # (Auto) 3.8 x10^3uL (1.8-7.7) Lymphocytes # (Auto) 0.8 x10^3/uL (1.0-4.8) Monocytes # (Auto) 0.5 x10^3/uL (0.0-1.1) Eosinophils # (Auto) 0.1 x10^3/uL (0.0-0.7) Basophils # (Auto) 0.0 x10^3/uL (0.0-0.2) Sodium Level 140 mmol/L (136-145) Potassium Level 4.0 mmol/L (3.5-5.1) Chloride Level 107 mmol/L (98-107) Carbon Dioxide Level 24 mmol/L (21-32) Anion Gap 9 (6-14) Blood Urea Nitrogen 14 mg/dL (8-26) Creatinine 1.0 mg/dL (0.7-1.3) Estimated GFR (Cockcroft-Gault) 71.9 BUN/Creatinine Ratio 14 (6-20) Glucose Level 105 mg/dL (70-99) Calcium Level 8.5 mg/dL (8.5-10.1) Magnesium Level 2.1 mg/dL (1.8-2.4) Total Bilirubin 1.5 mg/dL (0.2-1.0) Aspartate Amino Transf (AST/SGOT) 20 U/L (15-37) Alanine Aminotransferase (ALT/SGPT) 29 U/L (16-63) Alkaline Phosphatase 67 U/L (46-116) Troponin I Quantitative < 0.017 ng/mL (0-0.055) Total Protein 6.5 g/dL (6.4-8.2) Albumin 3.5 g/dL (3.4-5.0) Albumin/Globulin Ratio 1.2 (1.0-1.7) Prothrombin Time 21.0 SEC (9.4-11.4) Prothromb Time International Ratio 2.0 (0.9-1.1) Physical Exams HEENT: Neck Supple W Full Motion Chest: Symmetric Lungs: Clear to Auscultation Heart: S1S2, RRR Abdomen: Soft N/T Extremities: No Edema Neurology: alert, oriented, follow commands Assessment Assessment 1. Chest pain, atypical. Troponin negative x2. AMI ruled out. 2. CAD; s/p PCI/CATALINA to LAD in October 2018. The previously placed stent in LCx was patent at that time. He has known chronic total occlusion of RCA. 2-D echo 10/2018 showed normal LV function 3. Accelerated hypertension; mildly elevated 4. Dyslipidemia; statin 5. Paroxysmal atrial fibrillation, currently in sinus rhythm. Recommendations Add imdur Continue secondary prevention measures Consider outpatient stress test. May discharge from a CV standpoint and f/u in our office with Dr. Pasnorri as scheduled. KARISSA DEUTSCH MD 07/11/19 1018: CARDIO Progress Notes Plan Plan Late entry for 07/08/2019 Pt. seen and examined. Agree with above PRESSER MACHINE note. CAROL GARY SEAFOOD CLERK Jul 09, 2019 07:27 KARISSA DEUTSCH MD Jul 11, 2019 10:18
[2019-07-09] MEDS ORDERED: VITAMIN B COMPLEX CAPSULE. PO SCH (09:00)
[2019-07-09] MEDS ORDERED: LOSARTAN 50 MG TABLET. PO SCH (09:00)
[2019-07-09] MEDS ORDERED: ISOSORBIDE MONONITRATE ER 30 MG TAB.ER.24H PO SCH (09:00)
[2019-07-09] MEDS ORDERED: CLOPIDOGREL BISULFATE 75 MG TABLET PO SCH (09:00)
--- NOTE | 2019-07-09 09:22 | NUR ---
Pharmacy Warfarin Dosing Note S:Pharmacy consulted to assist with anticoagulation therapy started with target INR: 2 -3 O:MAGGY CABALLERO is a 79 year old M with Atrial Fibrillation LABS: Last INR: 2.0 Last HGB: 17.4 Last HCT: 50.1 Last PLT: 170 Last dose of 5 mg given on 07/08/19 at Previous Regimen: 5MG M,W,F AND 6MG ,,SA,COULTER Vitamin K given: Drug Interaction Changes: Ongoing Drug Interactions: A:INR Within desired Range. Target Range for this patient is: 2 -3 P: Warfarin dose: 6 mg Today at 1600 Bridge Therapy: None Next INR due 07/10/2019 Pharmacy anticoagulation service will continue to follow. PHYLLIS JAY, 07/09/19 0922
[2019-07-09] MEDS: CARVEDILOL 3.125 MG TABLET PO SCH ×2 (10:17→17:00)
[2019-07-09] MEDS: CALCIUM CARB/VIT D3 500/200 TABLET PO SCH ×2 (10:17→17:00)
[2019-07-09] MEDS: FAMOTIDINE 20 MG TABLET PO SCH ×2 (10:17→15:46)
[2019-07-09 15:00] VITALS: BP 152/64
[2019-07-09] MEDS ORDERED: WARFARIN 6 MG TABLET. PO SCH (16:00)
[2019-07-09 17:00] VITALS: BP 154/62
[2019-07-09] MEDS ORDERED: ISOS30TA4 PO (18:20)
--- NOTE | 2019-07-09 19:01 | HP ---
ADMIT DATE: 07/08/2019 HISTORY OF PRESENT ILLNESS: The patient is an 79-year-old male patient who came to the Emergency Room with a complaint of chest discomfort. He reports that over the last 3-4 days he has had some chest discomfort with activity, usually resolves after he lies down. He describes discomfort mostly in his axilla bilaterally, has had some tingling in his fingers. He does not have any classic anginal symptoms. He also suspects that part of this may be anxiety. He denies any palpitation, orthopnea or paroxysmal nocturnal dyspnea. Denied any dizziness, lightheadedness or vertigo. He has been compliant with his medication. In the Emergency Room, he was evaluated and his cardiac enzymes and EKG were unremarkable and therefore, he was admitted to do 2 more sets of cardiac enzymes, check his fasting lipid profile and consult the Cardiology team. PAST MEDICAL HISTORY: Significant for coronary artery disease, status post PCI to the left anterior descending on 10/2018, prior history of PCI to left circumflex. Other medical problems include hypertension, dyslipidemia, venous insufficiency, paroxysmal atrial fibrillation. PAST SURGICAL HISTORY: Includes cholecystectomy, hernia repair and prostatectomy. FAMILY HISTORY: Significant for hypertension and cancer. SOCIAL HISTORY: He is , lives with his . Does not smoke, drink alcohol or use any recreational drugs. ALLERGIES: HE IS ALLERGIC TO PENICILLIN, SULFA AND CODEINE. MEDICATIONS: He is currently on following medications: He is on warfarin 5 mg 3 times per week and warfarin 6 mg 4 times a week, Plavix 75 mg once a day, simvastatin 10 mg at bedtime, nitroglycerin 0.4 mg sublingually every 5 minutes x 3, carvedilol 3.125 mg twice a day, losartan potassium 100 mg once a day, calcium carbonate with vitamin D3 one tablet once a day, famotidine 20 mg 3 times a day, vitamin B complex 1 tablet daily. REVIEW OF SYSTEMS: As per history of present illness. PHYSICAL EXAMINATION: GENERAL: On arrival to the Emergency Room, the patient looked well and was clearly in no apparent respiratory distress. No pallor, jaundice, cyanosis or thyromegaly. No jugular venous distension. No lower limb edema. VITAL SIGNS: His heart rate was 66, blood pressure 141/61, temperature was 97.7, respiratory rate was 18 and oxygen saturation was 99% on room air. HEAD, EYES, EARS, NOSE AND THROAT: Showed normocephalic, atraumatic. NECK: Supple. HEART: Showed normal first and second heart sounds. No gallop or murmur. CHEST: Clear to auscultation. No crepitation or rhonchi. ABDOMEN: Distended, soft, nontender. NEUROLOGIC: He was awake, alert, responding appropriately. All cranial nerves intact. EXTREMITIES: He moves extremities without difficulty, ambulates without assistance or assistive devices. LABORATORY DATA: His lab work on admission showed a serum sodium 140, potassium 4, chloride 107, bicarbonate 24, anion gap of 9, BUN 14, creatinine 1. His hemoglobin was 17, hematocrit 50 with normal white cell count and platelets. His prothrombin time 21, INR of 2. His first set of cardiac enzymes showed troponin to be less than 0.017. PLAN: The patient was admitted to do 2 more sets of cardiac enzymes, check his fasting lipid profile and consult the scraper tender. GOMEZ LAGUNA MD DR: RAHEEM/calin JOB#: [id number] / [id number]
--- NOTE | 2019-07-09 22:13 | DS ---
DATE OF DISCHARGE: 07/09/2019 HISTORY OF PRESENT ILLNESS: The patient was admitted yesterday with recurrent episode of chest pain that is fairly atypical, has had 2 sets of cardiac enzymes that ruled out myocardial infarction. His fasting lipid profile showed his serum triglycerides were 91, total cholesterol was 131, LDL was 62, VLDL was 18, and HDL cholesterol was 52 and the ratio was 2. He was seen in consultation by the Cardiology team and he was started on Imdur and decision was made to discharge him home to follow and to arrange for outpatient stress testing with Dr. Edgar as scheduled. PHYSICAL EXAMINATION: GENERAL: When I saw him this afternoon, he was sitting on the edge of the bed comfortably, in no apparent distress. No pallor, jaundice, cyanosis, or thyromegaly. No jugular venous distension. No lower limb edema. VITAL SIGNS: His heart rate was 68, blood pressure 154/62. The rest of the physical exam is stable. The patient was discharged to continue old medication together with Imdur 30 mg once a day. FINAL DISCHARGE DIAGNOSES: 1. Atypical chest pain, myocardial infarction is ruled out. 2. Coronary artery disease, status post percutaneous coronary intervention with drug-eluting stent to left anterior descending in October 2018, has had previously placed stent to left circumflex. 3. Accelerated hypertension, improving. 4. Dyslipidemia. 5. Paroxysmal atrial fibrillation, currently in sinus rhythm. GOMEZ LAGUNA MD DR: RAHEEM/calin JOB#: [id number] / [id number]
[2019-07-10] MEDS ORDERED: WARFARIN 5 MG TABLET. PO SCH (16:00)
== END 2019-07-09 18:39 | disposition home or self-care (01) | DRG 206 ==
LOC: ER 11:15 → ICU 13:26 → ER 14:12
PROVIDERS: ADMIT Internal Medicine; ATTEND Internal Medicine
DX: M94.0 Chondrocostal junction syndrome [Tietze] (principal); I25.10 Atherosclerotic heart disease of native coronary artery without angina pectoris; E78.5 Hyperlipidemia, unspecified; F41.9 Anxiety disorder, unspecified; I10 Essential (primary) hypertension; I25.82 Chronic total occlusion of coronary artery; I48.0 Paroxysmal atrial fibrillation; Z79.01 Long term (current) use of anticoagulants; Z82.49 Family history of ischemic heart disease and other diseases of the circulatory system; Z95.5 Presence of coronary angioplasty implant and graft
CPT/HCPCS: 36415; 71045; 80053; 80061; 83735; 84484; 85025; 85610; 93005; 99285-25

== ENCOUNTER → 2020-03-18 | Outpatient (CLI) | payer MEDICARE, BC ==
[~2020-03-18] MED LIST changes: +ISOS30TA4 PO; -WARF-78 PO; +WARF5TAB2 PO; +WARF6TAB PO
--- NOTE | 2020-03-19 09:24 | RAD ---
PROCEDURE: KNEE RIGHT 3V CLINICAL INDICATION / HISTORY: Reason: RIGHT KNEE PAIN / Spl. Instructions: / History: . TECHNIQUE: AP, lateral, and oblique views of the right knee. COMPARISON: None FINDINGS: The osseous structures are intact. The articular surfaces are smooth. The joint space is maintained. No intra-articular loose bodies. The alignment is within normal limits. The soft tissues are notable for arterial calcifications but otherwise unremarkable. No obvious joint effusion. No radio-opaque foreign bodies are identified. IMPRESSION: Arterial calcifications. Otherwise essentially unremarkable right knee x-ray series. Electronically signed by: Hattie Schwartz MD (03/19/2020 9:21 AM) [id number]
== END | disposition home or self-care (01) ==
LOC: RAD 17:12
PROVIDERS: ATTEND Physician Assistant
DX: I70.201 Unspecified atherosclerosis of native arteries of extremities, right leg (principal); M25.561 Pain in right knee
CPT/HCPCS: 73562

== ENCOUNTER 2020-09-08 08:09 | Emergency (ER) | payer MEDICARE, BC ==
[~2020-09-08] VITALS: Ht 170.2 cm; Wt 92.0 kg
[2020-09-08 08:09] VITALS: BP 176/57
[~2020-09-08 08:09] MED LIST changes: -ISOS30TA4 PO; +ISOS30TA68 PO
--- NOTE | 2020-09-08 09:02 | PHYS DOC ---
Past History Past Medical History: A-Fib, Kidney Stones, [place], Pneumonia, Prostatitis, Other Additional Past Medical Histor: stents, bakers cyst, Past Surgical History: Cholecystectomy, Other Additional Past Surgical Histo: stents placed, R rotator cuff. Smoking: Non-smoker Alcohol Use: None Drug Use: None General Adult EDM: Chief Complaint: LOWER EXT PAIN HPI: HPI: Patient is a 80-year-old male coming in for pain to his left knee. Patient states that he was walking up a couple of steps last night and felt a pop with some pain. States as if he went on he was walking around the pain got better. Is having increasing pain today with walking. States he does not like his knee is swollen but feels like the pain is in the back. Patient states he has a history of a Fisher's cyst but is unsure which leg it was on. Denies any lower extremity edema. Has not taken anything for pain. States he otherwise has been well. Review of Systems: Review of Systems: All other systems within normal limits except for as noted in the HPI Allergies: Allergies: Allergies Coded Allergies Type Severity Reaction Last Updated Verified Penicillins Allergy Intermediate 02/10/19 Yes Sulfa (Sulfonamide Antibiotics) Allergy Intermediate 02/10/19 Yes codeine Allergy Intermediate 02/10/19 Yes Physical Exam: PE: Constitutional: Well developed, well nourished, no acute distress, non-toxic appearance. [] HENT: Normocephalic, atraumatic, bilateral external ears normal, nose normal. [] Eyes: PERRLA, conjunctiva normal, no discharge. [] Neck: No rigidity, supple, no stridor. [] Cardiovascular: Regular rate and rhythm, brisk cap refill [] Lungs & Thorax: Non labored symmetric respirations, no tachypnea or respiratory distress [] Abdomen: Soft, nondistended. Skin: Warm, dry, no erythema, no rash. [] Back: Unremarkable Extremities: No deformities, range of motion grossly intact, no lower extremity edema. Left knee exam: Tenderness in popliteal fossa, no varus or valgus laxity, no anterior-posterior laxity. No joint effusion [] Neurologic: Alert and oriented X 3, no focal deficits noted. [] Psychologic: Affect normal, judgement normal, mood normal. [] Current Patient Data: Vital Signs: Vital Signs Date Time Temp Pulse Resp B/P (MAP) Pulse Ox O2 Delivery O2 Flow Rate FiO2 09/08/20 08:09 98.3 57 18 176/57 (96) 98 EKG: EKG: [] Radiology/Procedures: Radiology/Procedures: XR KNEE _3 VIEWS_LT DATE: 09/08/2020 8:54 AM INDICATION: Reason: pain / Spl. Instructions: / History: COMPARISON: None. FINDINGS: Bones: There is no evidence of acute fracture or dislocation. Joints: The joint spaces are normal. There is no joint effusion. Miscellaneous: Atherosclerotic vascular calcifications. IMPRESSION: No acute osseous abnormality. US DPLX VENOUS EXTREMITY LOWER LT 09/08/2020 8:54 AM Clinical Information: Left posterior knee pain. Comparison: None. Technique: Multiple grayscale, color Doppler, and spectral Doppler sonographic images of the lower extremity venous structures were obtained. Findings: The left common femoral, femoral, and popliteal veins exhibit normal compression, respiratory phasicity, and augmentation. No intraluminal thrombi are identified. Color Doppler flow is demonstrated in the left posterior tibial veins. Greater saphenous veins are patent at the saphenofemoral junction. Impression: 1. No evidence of deep venous thrombosis. [] Heart Score: Risk Factors: Risk Factors: DM, Current or recent (<one month) smoker, HTN, HLP, family history of CAD, obesity. Risk Scores: Score 0 - 3: 2.5% MACE over next 6 weeks - Discharge Home Score 4 - 6: 20.3% MACE over next 6 weeks - Admit for Clinical Observation Score 7 - 10: 72.7% MACE over next 6 weeks - Early Invasive Strategies Course & Med Decision Making: Course & Med Decision Making Pertinent Labs and Imaging studies reviewed. (See chart for details) [] Dragon Disclaimer: Dragon Disclaimer: This electronic medical record was generated, in whole or in part, using a voice recognition dictation system. Departure Departure: Impression: Primary Impression: Left knee pain Disposition: 01 DC HOME SELF CARE/HOMELESS Condition: STABLE Referrals: KAYLEIGH TORRES (PCP) Patient Instructions: Knee Wraps (Elastic Bandage) and RICE Additional Instructions: Take Tylenol or ibuprofen as needed for pain MELISSA DURANT MD Sep 08, 2020 09:02
--- NOTE | 2020-09-08 09:36 | RAD ---
XR KNEE _3 VIEWS_LT DATE: 09/08/2020 8:54 AM INDICATION: Reason: pain / Spl. Instructions: / History: COMPARISON: None. FINDINGS: Bones: There is no evidence of acute fracture or dislocation. Joints: The joint spaces are normal. There is no joint effusion. Miscellaneous: Atherosclerotic vascular calcifications. IMPRESSION: No acute osseous abnormality. Electronically signed by: Wes Morgan MD (09/08/2020 9:34 AM) [id number]
--- NOTE | 2020-09-08 09:39 | RAD ---
US DPLX VENOUS EXTREMITY LOWER LT 09/08/2020 8:54 AM Clinical Information: Left posterior knee pain. Comparison: None. Technique: Multiple grayscale, color Doppler, and spectral Doppler sonographic images of the lower ex tremity venous structures were obtained. Findings: The left common femoral, femoral, and popliteal veins exhibit normal compression, respiratory phasici ty, and augmentation. No intraluminal thrombi are identified. Color Doppler flow is demonstrated in t he left posterior tibial veins. Greater saphenous veins are patent at the saphenofemoral junction. Impression: 1. No evidence of deep venous thrombosis. Electronically signed by: Sultana Locke MD (09/08/2020 9:37 AM) [id number]
== END 2020-09-08 10:15 | disposition home or self-care (01) ==
LOC: ER 08:09
DX: M25.562 Pain in left knee (principal); I48.91 Unspecified atrial fibrillation; I25.2 Old myocardial infarction; Z87.442 Personal history of urinary calculi; Z88.0 Allergy status to penicillin; Z88.2 Allergy status to sulfonamides; Z88.5 Allergy status to narcotic agent; X50.9XXA Other and unspecified overexertion or strenuous movements or postures, initial encounter; Y93.01 Activity, walking, marching and hiking; Y92.89 Other specified places as the place of occurrence of the external cause; Y99.8 Other external cause status
CPT/HCPCS: 73562; 93971; 99284

== ENCOUNTER 2021-10-05 16:38 | Emergency (ER) | payer MEDICARE, BC ==
[~2021-10-05] VITALS: Ht 170.2 cm; Wt 92.0 kg
[2021-10-05 16:47] VITALS: BP 180/80
--- NOTE | 2021-10-05 17:04 | PHYS DOC ---
Past History Past Medical History: A-Fib, Kidney Stones, [place], Pneumonia, Prostatitis, Other Additional Past Medical Histor: stents, bakers cyst, Past Surgical History: Cholecystectomy, Other Additional Past Surgical Histo: stents placed, R rotator cuff. Smoking: Non-smoker Alcohol Use: None Drug Use: None General Adult EDM: Chief Complaint: POST-OP PROBLEM HPI: HPI: Patient is a 81-year-old male who presents with bleeding after having a skin biopsy this morning, around 9:30 AM. The biopsy site is bleeding and oozing. He has not contacted his torpedo specialist but rather went to see his who is hospitalized at [facility]. The wound has continued to ooze and bleed. He has held intermittent light pressure. He is anticoagulated on Eliquis. He denies any physical pain or discomfort. Denies dizziness. Denies bleeding from other sources or sites. He reports tetanus vaccination up-to-date Review of Systems: Review of Systems: As per HPI Allergies: Allergies: Allergies Coded Allergies Type Severity Reaction Last Updated Verified Penicillins Allergy Intermediate 02/10/19 Yes Sulfa (Sulfonamide Antibiotics) Allergy Intermediate 02/10/19 Yes codeine Allergy Intermediate 02/10/19 Yes Physical Exam: PE: Constitutional: Well developed, well nourished, no acute distress, non-toxic appearance. [] HENT: Normocephalic, there is a round biopsy lesion just lateral to the right eye, below the right eyebrow. There is mild oozing, no brisk or pulsatile bleeding. Nose no significant surrounding soft tissue swelling, mild contusion. No tenderness is noted. No purulence, no induration. No fluctuance. Eyes: PERRL, EOMI, conjunctiva normal, no discharge. No evidence of ocular trauma. Neck: Trachea is midline Cardiovascular: Well-perfused appearing Lungs & Thorax: Respirations are nonlabored Skin: Warm, dry, no erythema, no rash. Round skin biopsy site on the right ey ebrow area, as above. Back: No tenderness, no CVA tenderness. [] Extremities: No tenderness, no cyanosis, no clubbing, ROM intact, no edema. [] Neurologic: Alert and oriented X 3, normal motor function, normal sensory function, no focal deficits noted. Ambulatory with a steady gait. Speech is clear and fluent. Psychologic: Affect normal, judgement normal, mood normal. He is pleasant and cooperative Current Patient Data: Vital Signs: Vital Signs Date Time Temp Pulse Resp B/P (MAP) Pulse Ox O2 Delivery O2 Flow Rate FiO2 10/05/21 16:47 176/57 (96) EKG: EKG: [] Radiology/Procedures: Radiology/Procedures: [] Heart Score: C/O Chest Pain: No Risk Factors: Risk Factors: DM, Current or recent (<one month) smoker, HTN, HLP, family history of CAD, obesity. Risk Scores: Score 0 - 3: 2.5% MACE over next 6 weeks - Discharge Home Score 4 - 6: 20.3% MACE over next 6 weeks - Admit for Clinical Observation Score 7 - 10: 72.7% MACE over next 6 weeks - Early Invasive Strategies Course & Med Decision Making: Course & Med Decision Making I cleaned the wound, I placed Surgifoam, 2 x 2's and 4 x 4's and a bulky dressing over the wound. I recommend that he contact his torpedo specialist and PCP tomorrow. Hemostasis is achieved, there is no brisk or active bleeding at this time. I did discuss home care instructions. He is given supplies for discharge home. Strict return precautions are given. He verbalizes understanding. David Disclaimer: David Disclaimer: This electronic medical record was generated, in whole or in part, using a voice recognition dictation system. Departure Departure: Impression: Primary Impression: Postoperative wound hemorrhage Disposition: HOME / SELF CARE / HOMELESS Condition: STABLE Referrals: KAYLEIGH TORRES (PCP) Patient Instructions: Open Wound, Head, [id number] Additional Instructions: Please keep your wound clean and dry. You may reapply the Surgifoam and dressing tomorrow if the bleeding continues. Return to the ER immediately for severe uncontrolled bleeding, temperature 100.4 or higher, if you develop yellow-green drainage, if you develop significant swelling, redness or severe pain around the site or for any other concerns. Please contact your torpedo specialist tomorrow let them know that you had postoperative bleeding. LEONIE RIBEIRO DO Oct 05, 2021 17:04
[2021-10-05] MEDS ORDERED: GELATIN SPONGE SIZE 12-7MM SPONGE. ONE (17:11)
== END 2021-10-05 17:33 | disposition home or self-care (01) ==
LOC: ER 16:38
DX: L76.22 Postprocedural hemorrhage of skin and subcutaneous tissue following other procedure (principal); I48.91 Unspecified atrial fibrillation; I25.2 Old myocardial infarction; Z87.442 Personal history of urinary calculi; Z88.0 Allergy status to penicillin; Z88.2 Allergy status to sulfonamides; Z88.5 Allergy status to narcotic agent
CPT/HCPCS: 99282

== ENCOUNTER 2021-12-03 09:38 | Emergency (ER) | payer MEDICARE, BC ==
[~2021-12-03] VITALS: Ht 170.2 cm; Wt 92.6 kg
--- NOTE | 2021-12-03 09:58 | PHYS DOC ---
Past History Past Medical History: A-Fib, Kidney Stones, [place], Pneumonia, Prostatitis, Other Additional Past Medical Histor: stents, bakers cyst, Past Surgical History: Cholecystectomy, Other Additional Past Surgical Histo: stents placed, R rotator cuff. Smoking: Non-smoker Alcohol Use: None Drug Use: None General Adult EDM: Chief Complaint: SYNCOPE HPI: HPI: Patient is a 81-year-old male coming in via EMS after syncopal episode. Patient was taking his from physical therapy when he had a syncopal episode in the lobby. Patient was standing at that time and states he felt well prior. Patient was caught by bystanders and did not fall or hit his head on the floor. Patient is now complaining of nausea and has had several episodes of vomiting, was given Zofran by EMS. Patient is complaining of lower mid abdominal pain and describes it as "I need to move my bowels". No new medications. Review of Systems: Review of Systems: All other systems within normal limits except for as noted in the HPI Allergies: Allergies: Allergies Coded Allergies Type Severity Reaction Last Updated Verified Penicillins Allergy Intermediate 12/03/21 Yes Sulfa (Sulfonamide Antibiotics) Allergy Intermediate 12/03/21 Yes codeine Allergy Intermediate 12/03/21 Yes Physical Exam: PE: Constitutional: Well developed, well nourished, no acute distress, non-toxic appearance. [] HENT: Normocephalic, atraumatic, bilateral external ears normal, nose normal. [] Eyes: PERRLA, conjunctiva normal, no discharge. [] Neck: No rigidity, supple, no stridor. [] Cardiovascular: Regular rate and rhythm, brisk cap refill [] Lungs & Thorax: Non labored symmetric respirations, no tachypnea or respiratory distress [] Abdomen: Soft, nondistended, low abdominal tenderness, no palpable pulsatile masses Skin: Warm, dry, no erythema, no rash. [] Back: Unremarkable Extremities: No deformities, range of motion grossly intact, no lower extremity edema [] Neurologic: Alert and oriented X 3, no focal deficits noted. [] Psychologic: Affect normal, judgement normal, mood normal. [] EKG: EKG: Atrial fibrillation with a heart rate of 65 bpm, left axis deviation, no STEMI. [] Radiology/Procedures: Radiology/Procedures: [place] [id number] IMAGING REPORT Signed PATIENT: MAGGY CABALLERO EACCOUNT: [id number] : 1940 LOCATION: ER AGE: 81 SEX: M EXAM STATUS: REG ER ORD. PHYSICIAN: MELISSA DURANT MD REASON: abd pain, syncope; hx AAA PROCEDURE: SCAN OF ABDOMINAL AORTA US ABDOMINAL AORTA SCREENING AAA History: Reason: abd pain, syncope; hx AAA / Spl. Instructions: / History: Comparison: CT December 03, 2021 TECHNIQUE: The abdominal aorta was examined from the diaphragm to the proximal common iliac arteries. FINDINGS: Degraded evaluation of the proximal and distal aorta due to overlying bowel gas. Atheromatous plaque within the mid aorta. No evidence of mid aortic aneurysm AP diameter 1.9 cm IMPRESSION: 1. Degraded evaluation of the proximal and distal aorta. 2. Mild atheromatous plaque within the mid aorta. No mid aortic aneurysm. Electronically signed by: Jeffrey Gooden DO (12/03/2021 11:07 AM) [id number] DICTATED AND SIGNED BY: JEFFREY GOODEN DO DATE: 12/03/21 1105 CC: MELISSA DURANT MD; KAYLEIGH TORRES ~ [address] [id number] IMAGING REPORT Signed PATIENT: MAGGY CABALLERO EACCOUNT: [id number] : 1940 LOCATION: ER AGE: 81 SEX: M EXAM STATUS: REG ER ORD. PHYSICIAN: MELISSA DURANT MD REASON: low abd pain, syncope PROCEDURE: CT ABDOMEN PELVIS WO CONTRAST CT ABDOMEN+PELVIS WO History: Reason: low abd pain, syncope / Spl. Instructions: / History: Technique: Noncontrast examination of the abdomen and pelvis. Coronal and sagittal reconstructions were performed. Exposure: One or more of the following individualized dose reduction techniques were utilized for this examination: 1. Automated exposure control 2. Adjustment of the mA and/or kV according to patient size 3. Use of iterative reconstruction technique. Comparison: August 12, 2016 Findings: Lower chest: Posterior dependent lower lobe atelectasis. Coronary artery calcifications. Abdomen and pelvis: The liver, spleen, adrenal glands, and pancreas are unremarkable. Prior cholecystectomy. No biliary ductal dilatation. Right renal cyst measures 5.3 x 4.9 cm. Lobulated left renal cyst measures 5.7 x 3.9 cm. Left inferior renal cyst measures 3.9 x 3.9 cm. No hydronephrosis. No renal calculus. Right parapelvic renal cysts. No ureteral or urinary bladder calculus. Moderate distal colonic and rectal stool burden with mild distention of the rectum. Colonic diverticulosis. Regions of colonic nondistention. Normal appendix. No evidence of bowel obstruction. No pathologic lymphadenopathy. No ascites. Small fat-containing umbilical hernia with soft tissue density, unchanged compared to 2017. Moderate atheromatous plaque throughout the aorta and branch vessels. No evidence of aortic aneurysm. Retroaortic left renal vein incidentally noted. Bones: Grade 1 anterolisthesis L4 on L5. Multilevel lumbar spondylosis. Impression: 1. No acute abdominal or pelvic pathology. 2. Moderate distal colonic and rectal stool burden with mild distention of the rectum. Electronically signed by: Jeffrey Gooden DO (12/03/2021 11:19 AM) [id number] DICTATED AND SIGNED BY: JEFFREY GOODEN DO DATE: 12/03/21 1109 CC: MELISSA DURANT MD; KAYLEIGH TORRES ~ [] Heart Score: C/O Chest Pain: No Risk Factors: Risk Factors: DM, Current or recent (<one month) smoker, HTN, HLP, family history of CAD, obesity. Risk Scores: Score 0 - 3: 2.5% MACE over next 6 weeks - Discharge Home Score 4 - 6: 20.3% MACE over next 6 weeks - Admit for Clinical Observation Score 7 - 10: 72.7% MACE over next 6 weeks - Early Invasive Strategies Course & Med Decision Making: Course & Med Decision Making Pertinent Labs and Imaging studies reviewed. (See chart for details) All emergency department patient had an episode of cardiac pause, patient denies gross was initially not responsive, there was a work-up by being shook by the nurse. Pulling information for the monitor shows approximately 10 to 12 seconds of cardiac pause that was interrupted by 1 narrow complex beat. Suspect that a similar episode may have happened earlier when the patient passed out. Patient does have a history of atrial fibrillation Patient placed on cardiac pads Discussed with patient's core maker helper, Dr. Edgar, and hospitalist, Dr. Deras, patient will be transported to [facility] for [] Dragon Disclaimer: David Disclaimer: This electronic medical record was generated, in whole or in part, using a voice recognition dictation system. Departure Departure: Impression: Primary Impression: Syncope Additional Impressions: Atrial fibrillation Sinus pause Disposition: 02 SHORT TERM HOSPITAL Condition: GUARDED Referrals: KAYLEIGH TORRES (PCP) MELISSA DURANT MD December 03, 2021 09:58
[2021-12-03] MEDS ORDERED: ONDANSETRON PF 4 MG/2 ML VIAL. IVP ONE ×2 (10:00→14:30)
--- NOTE | 2021-12-03 11:10 | RAD ---
US ABDOMINAL AORTA SCREENING AAA History: Reason: abd pain, syncope; hx AAA / Spl. Instructions: / History: Comparison: CT December 03, 2021 TECHNIQUE: The abdominal aorta was examined from the diaphragm to the proximal common iliac arteries. FINDINGS: Degraded evaluation of the proximal and distal aorta due to overlying bowel gas. Atheromatous plaque within the mid aorta. No evidence of mid aortic aneurysm AP diameter 1.9 cm IMPRESSION: 1. Degraded evaluation of the proximal and distal aorta. 2. Mild atheromatous plaque within the mid aorta. No mid aortic aneurysm. Electronically signed by: Jeffrey Contreras DO (12/03/2021 11:07 AM) [id number]
--- NOTE | 2021-12-03 11:21 | RAD ---
CT ABDOMEN+PELVIS WO History: Reason: low abd pain, syncope / Spl. Instructions: / History: Technique: Noncontrast examination of the abdomen and pelvis. Coronal and sagittal reconstructions we re performed. Exposure: One or more of the following individualized dose reduction techniques were utilized for thi s examination: 1. Automated exposure control 2. Adjustment of the mA and/or kV according to patient size 3. Use of iterative reconstruction technique. Comparison: August 12, 2016 Findings: Lower chest: Posterior dependent lower lobe atelectasis. Coronary artery calcifications. Abdomen and pelvis: The liver, spleen, adrenal glands, and pancreas are unremarkable. Prior cholecyst ectomy. No biliary ductal dilatation. Right renal cyst measures 5.3 x 4.9 cm. Lobulated left renal cyst measures 5.7 x 3.9 cm. Left inferio r renal cyst measures 3.9 x 3.9 cm. No hydronephrosis. No renal calculus. Right parapelvic renal cyst s. No ureteral or urinary bladder calculus. Moderate distal colonic and rectal stool burden with mild distention of the rectum. Colonic diverticu losis. Regions of colonic nondistention. Normal appendix. No evidence of bowel obstruction. No pathol ogic lymphadenopathy. No ascites. Small fat-containing umbilical hernia with soft tissue density, unc hanged compared to 2017. Moderate atheromatous plaque throughout the aorta and branch vessels. No evidence of aortic aneurysm. Retroaortic left renal vein incidentally noted. Bones: Grade 1 anterolisthesis L4 on L5. Multilevel lumbar spondylosis. Impression: 1. No acute abdominal or pelvic pathology. 2. Moderate distal colonic and rectal stool burden with mild distention of the rectum. Electronically signed by: Jeffrey Contreras DO (12/03/2021 11:19 AM) [id number]
[2021-12-03 11:37] LABS: BASO % 0 % (0-3); EOS # 0.1 x10^3/uL (0.0-0.7); EOS % 2 % (0-3); HEMATOCRIT 53.4 % (39.0-53.0); LYMPH # 0.6 x10^3/uL (1.0-4.8); LYMPH % 7 % (24-48); MEAN CORPUSCULAR HEMOGLOBIN 34 pg (25-35); MEAN CORPUSCULAR HGB CONC 34 g/dL (31-37); MEAN CORPUSCULAR VOLUME 102 fL (79-100); MONO # 0.5 x10^3/uL (0.0-1.1); MONO % 5 % (0-9); NEUT # 7.3 x10^3uL (1.8-7.7); NEUT % 86 % (31-73); PLATELET COUNT 164 x10^3/uL (140-400); RED BLOOD COUNT 5.25 x10^6/uL (4.30-5.70); RED CELL DISTRIBUTION WIDTH 14.6 % (11.5-14.5); WHITE BLOOD COUNT 8.5 x10^3/uL (4.0-11.0)
[2021-12-03 12:04] LABS: CREATININE 0.9 mg/dL (0.7-1.3); GFR 80.8; POTASSIUM 4.5 mmol/L (3.5-5.1)
[2021-12-03 12:12] LABS: ALBUMIN 3.4 g/dL (3.4-5.0); ALBUMIN/GLOBULIN RATIO 1.1 (1.0-1.7); MAGNESIUM 2.3 mg/dL (1.8-2.4); PHOSPHORUS 2.3 mg/dL (2.6-4.7); TOTAL BILIRUBIN 1.7 mg/dL (0.2-1.0); TOTAL PROTEIN 6.4 g/dL (6.4-8.2)
[2021-12-03] MEDS ORDERED: IV NORMAL SALINE 1,000ML 1,000 ML IV ONE (12:15)
[2021-12-03 12:26] LABS: AMPHETAMINE/METHAMPHETAMINE NEG (NEG); BARBITURATES NEG (NEG); BENZODIAZEPINES NEG (NEG); CANNABINOIDS NEG (NEG); COCAINE NEG (NEG); METHADONE NEG (NEG); OPIATES NEG (NEG); PHENCYCLIDINE NEG (NEG)
[2021-12-03 12:41] LABS: FECAL OB PT POSITIVE (NEG)
[2021-12-03 12:47] LABS: INFLUENZA A PATIENT NEGATIVE (NEGATIVE); INFLUENZA B PATIENT NEGATIVE (NEGATIVE)
[2021-12-03 13:04] LABS: BACTERIA,URINE 0 /HPF (0-FEW); CLARITY,URINE CLEAR; COLOR,URINE YELLOW; GLUCOSE,URINE NEG (NEG); NITRITE,URINE NEG (NEG)
[2021-12-03 16:30] VITALS: BP 166/86
== END 2021-12-03 16:45 | disposition short-term general hospital (02) ==
LOC: ER 09:38
DX: I48.91 Unspecified atrial fibrillation (principal); R55 Syncope and collapse; R11.2 Nausea with vomiting, unspecified; R10.30 Lower abdominal pain, unspecified; I25.2 Old myocardial infarction; Z20.822 Contact with and (suspected) exposure to COVID-19; Z87.442 Personal history of urinary calculi; Z90.49 Acquired absence of other specified parts of digestive tract; Z88.0 Allergy status to penicillin; Z88.2 Allergy status to sulfonamides; Z88.5 Allergy status to narcotic agent
CPT/HCPCS: 36415; 74176; 76770; 80053; 80307; 81001; 82274; 83605; 83690; 83735; 83880; 84100; 84484; 85025; 85379; 85610; 87086; 87428; 93005; 96361; 96374; 96376; 99285; C9803; G0480; J2405; J7030; U0003